=== PATIENT | female | born 1950 | race Caucasian/White ===

== ENCOUNTER → 2019-02-05 12:16 | Outpatient (CLI) | payer MEDICARE, OTHER, SELFPAY ==
--- NOTE | 2019-02-05 12:19 | DI.RAD.S_ITS ---
PROCEDURE: XR KNEE RT 3V INDICATIONS: knee pain from fall TECHNIQUE: 3 views of the knee were acquired. COMPARISON: None. FINDINGS: Bones: No fractures or dislocations. No suspicious bony lesions. Soft tissues: No joint effusion. No suspicious soft tissue calcifications. IMPRESSION: Excellent appearance, no trauma found. No effusion seen. Dictated by: James Jason M.D. on 02/05/2019 at 12:52 Approved by: James Jason M.D. on 02/05/2019 at 12:53
== END ==
PROVIDERS: PCP Family Medicine; Visit Provider Nurse Practitioner Family
DX: M25.561 Pain in right knee (principal)
CPT/HCPCS: 73562

== ENCOUNTER → 2019-03-26 13:45 | Outpatient (CLI) | payer MEDICARE, OTHER, SELFPAY ==
--- NOTE | 2019-03-26 | DI.MG.S_ITS ---
UNILATERAL LEFT DIGITAL SCREENING MAMMOGRAM 3D/2D WITH CAD POST MASTECTOMY WITH AUGMENTATION: 03/26/2019 CLINICAL: Routine screening. Personal history of breast cancer. Comparison is made to exams dated: 05/31/2015 mammogram, 02/04/2014 mammogram, 02/02/2013 mammogram, and 01/28/2012 mammogram - [facility]. The tissue of left breast is heterogeneously dense. This may lower the sensitivity of mammography. Current study was also evaluated with a Computer Aided Detection (CAD) system. Left breast implant is stable. No significant masses, calcifications, or other findings are seen in the breast. There has been no significant interval change. IMPRESSION: NEGATIVE There is no mammographic evidence of malignancy. A 1 year screening mammogram is recommended. This exam was interpreted at Station ID: [id number]. NOTE: For mammograms, a report in lay terms will be sent to the patient. Approximately 15% of breast malignancies will not be visualized mammographically. In the management of a palpable breast mass, a negative mammogram must not discourage biopsy of a clinically suspicious lesion. Electronically Signed By: Bassam ahumada/andreea:03/26/2019 18:43:35 letter sent: Normal Exam ACR BI-RADS Category 1: Negative [id number]
== END ==
PROVIDERS: Visit Provider Family Medicine
DX: Z12.31 Encounter for screening mammogram for malignant neoplasm of breast (principal); Z85.3 Personal history of malignant neoplasm of breast
CPT/HCPCS: 77063; 77067

== ENCOUNTER 2019-05-31 11:19 | Emergency (ER) | payer MEDICARE, OTHER, SELFPAY ==
[2019-05-31 11:27] VITALS: BP 166/89; PULSE 66; RESP 16; O2SAT 100
--- NOTE | 2019-05-31 11:27 | DI.RAD.S_ITS ---
PROCEDURE: XR RIBS LT MIN 3V W CXR1V INDICATIONS: injury TECHNIQUE: 2 views of the left ribs were acquired, along with a single view chest. COMPARISON: None. FINDINGS: Surgical changes and devices: Bilateral breast implants are noted. Axillary postoperative changes are present. There also appear to be clips within the right upper quadrant suggesting prior cholecystectomy. Bones and chest wall: Minimally displaced posterior left 9th rib fracture is evident. No additional rib fractures are identified. No suspicious bony lesions. Overlying soft tissues appear unremarkable. Lungs and pleura: No pleural effusions or pneumothorax. Lungs appear clear. Mediastinum: Mediastinal contours appear normal. Heart size is normal. IMPRESSION: Minimally displaced posterior left 9th rib fracture. No definite pneumothorax. Dictated by: Noel Blackmon M.D. on 05/31/2019 at 10:56 Approved by: Noel Blackmon M.D. on 05/31/2019 at 10:59
--- NOTE | 2019-05-31 11:54 | ED_ITS ---
HPI - Back Pain/Injury <Radha Ha, BUSINESS [employer] - Last Filed: 05/31/19 16:14> General Chief Complaint: Back Pain/Injury Stated Complaint: FELL AND HIT SOMETHING,CRACKED SOME RIBS Time Seen by Provider: 05/31/19 11:31 Source: patient and family Mode of arrival: Ambulatory Limitations: no limitations History of Present Illness HPI Narrative: The patient is a 68-year-old female who presents with her for chief complaint of left-sided rib pain. 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 Her states that she has an abrasion at that site, does not know when her last tetanus was. She denies hitting her head neck or any other pain other than the left-sided rib pain. She has not taken anything for pain s lacho this happened. It occurred just prior to arrival. She complains of severe pain worse with deep breath. She denies any previous injuries to her ribs, does have a remote history of breast cancer, remote history of spinal surgery. She does have a diagnosis of trigeminal neuralgia and she states that this pain is not as bad as her trigeminal neuralgia pain. Related Data Home Medications Medication Instructions Recorded Confirmed ASPIRIN (#ASPIRIN) 81 mg PO Q DAY #0 03/19/11 02/05/19 carbamazepine 200 mg PO BID #0 03/19/11 02/05/19 ASCORBIC ACID (VITAMIN C 1,000 mg PO Q DAY #0 11/22/11 02/05/19 (CHEWABLE)) CA PANTOTHENATE/FOLIC ACID/VIT 1 tab PO Q DAY #0 11/22/11 02/05/19 (MULTIVITAMIN) Pseudoephedrine Hydrochlorid 60 mg PO PRN #0 11/22/11 02/05/19 (#SUDAFED) VITAMIN D (Vitamin D3) 1,000 unit PO QDAY #0 02/04/12 02/05/19 [DHEA] 25 mg PO #0 02/19/16 02/05/19 docusate sodium 100 mg PO #0 02/19/16 02/05/19 ginkgo biloba 120 mg PO #0 02/19/16 02/05/19 lysine HCl 500 mg PO #0 02/19/16 02/05/19 melatonin #0 02/19/16 02/05/19 mometasone 1 julien TOPICAL #0 02/19/16 02/05/19 omega 8-gaq-fjw-fish oil [Fish Oil] 1,000 mg PO #0 02/19/16 02/05/19 Previous Rx's Medication Instructions Recorded estradiol 10 mcg vaginal tablet See Rx Instructions .ROUTE 01/04/19 .COMPLEX #36 tablet hydrocodone-acetaminophen [[place]] 1 tab PO Q4-6H PRN #10 tab 05/31/19 ondansetron 4 mg PO Q6H PRN #20 tab 05/31/19 Allergies Allergy/AdvReac Type Severity Reaction Status Date / Time neomycin Allergy Unknown Itches and Verified 05/31/19 11:27 hurts, little blisters morphine AdvReac Unknown SEVERE Verified 05/31/19 11:27 NAUSEA/VOMITING Review of Systems <MARISOL Baez - Last Filed: 05/31/19 16:14> Review of Systems Narrative: GENERAL: Denies chills, fatigue, malaise, fever, sweats. HEENT: Denies sinus pain, ear pain, sore throat, difficulty swallowing, dizziness. RESPIRATORY: See HPI CARDIOVASCULAR: Denies chest pain, palpitations, orthopnea, edema, GASTROINTESTINAL: Denies nausea, vomiting, abdominal pain, diarrhea, constipation, melena. : Denies dysuria, frequency, incontinence, hematuria, urinary retention. MUSCULOSKELETAL: denies weakness, joint pain, or bony pain SKIN: See HPI NEUROLOGIC: Denies weakness, headache, numbness, change in speech, confusion, seizures, incoordination. PSYCHIATRIC: No concerning psychosocial issues. 12 point review of systems is negative except for those stated above Patient History <MARISOL Baez - Last Filed: 05/31/19 16:14> Surgical History History of total mastectomy Status post laparoscopic cholecystectomy Status post myringotomy with insertion of tube Status post tubal ligation Status post vaginal hysterectomy Social History Smoking Status: Never smoker Smoking Status: Never smoker Exam <MARISOL Baez - Last Filed: 05/31/19 16:14> Narrative Exam Narrative: GENERAL: Thin female, appears very uncomfortable HEAD: Atraumatic. Normocephalic. No temporal or scalp tenderness. EYES: Pupils equal round and reactive. Extraocular motions intact. No scleral icterus. No injection or drainage. ENT: Nose without bleeding, purulent drainage or septal hematoma. Throat without erythema, tonsillar hypertrophy or exudate. Uvula midline. Airway patent. NECK: Trachea midline. No JVD or lymphadenopathy. Supple, nontender, no meningeal signs. CARDIOVASCULAR: Regular rate and rhythm without murmurs, gallops, or rubs. RESPIRATORY: Clear to auscultation. Breath sounds equal bilaterally. No wheezes, rales, or rhonchi. Pain to palpation left lower chest wall. Pain to anterior posterior chest wall compression as well as lateral chest wall compression GASTROINTESTINAL: Abdomen soft, diffusely tender, nondistended. No hepato- splenomegaly, or palpable masses. Pain to palpation left upper quadrant. EXTREMITIES: No clubbing, cyanosis, or edema. No joint tenderness, effusion, or edema noted. BACK: Nontender without deformity or crepitance. No flank tenderness. No pain to palpation of CT or L-spine. NEURO: AOx3. SKIN: Abrasion noted left lateral lower chest wall Initial Vital Signs Initial Vital Signs: Vital Signs Pulse Rate 66 05/31/19 11:27 Respiratory Rate 16 05/31/19 11:27 Blood Pressure 166/89 H 05/31/19 11:27 Pulse Oximetry 100 05/31/19 11:27 <Madalyn Snow MD - Last Filed: 06/01/19 07:05> Initial Vital Signs Initial Vital Signs: Vital Signs Pulse Rate 66 05/31/19 11:27 Respiratory Rate 16 05/31/19 11:27 Blood Pressure 166/89 H 05/31/19 11:27 Pulse Oximetry 100 05/31/19 11:27 Scores <MARISOL Baez - Last Filed: 05/31/19 16:14> GCS Stanford coma scale eye opening: Spontaneous Ángel coma scale verbal response: Orientated Stanford coma scale motor response: Obey commands Stanford coma scale total score: 15 Course <MARISOL Baez - Last Filed: 05/31/19 16:14> Orders Ordered: Discontinued Medications Hydrocodone Bitart/Acetaminophen ([place] 5/325) 2 tab PO NOW ONE Stop: 05/31/19 14:52 Last Admin: 05/31/19 14:57 Dose: 2 tab Documented by: OTTO Diphtheria/Tetanus/Acell Pertussis (Adacel) 0.5 ml IM .ONCE ONE Stop: 05/31/19 11:54 Last Admin: 05/31/19 12:16 Dose: 0.5 ml Documented by: YONI Hydromorphone HCl (Dilaudid) 0.5 mg IV NOW ONE Stop: 05/31/19 13:10 Last Admin: 05/31/19 13:14 Dose: 0.5 mg Documented by: OTTO Lidocaine (Lidoderm) 1 each TOP NOW ONE Stop: 05/31/19 11:54 Last Admin: 05/31/19 12:16 Dose: 1 each Documented by: YONI Ondansetron HCl (Zofran) 4 mg IV NOW ONE Stop: 05/31/19 13:10 Last Admin: 05/31/19 13:14 Dose: 4 mg Documented by: OTTO Reevaluation(s) Reevaluation #1: Discussed x-ray results with patient and . Given that she is tender to left upper quadrant palpation, does have displaced 9th rib fracture, she is at higher risk of a splenic injury. Will do lab work and CT s can help rule out acute splenic injury related to rib fracture. Patient and state understanding, have no questions or concerns, okay with plan of care. Time: 12:36 Vital Signs Vital signs: Vital Signs - 8 hr 05/31/19 11:27 05/31/19 13:29 05/31/19 15:56 Pulse Rate 66 61 70 Respiratory Rate 16 20 18 Blood Pressure 166/89 H 160/70 H Blood Pressure [Right Arm] 173/81 H Pulse Oximetry 100 100 98 <Madalyn Snow MD - Last Filed: 06/01/19 07:05> Orders Ordered: Discontinued Medications Hydrocodone Bitart/Acetaminophen ([place] 5/325) 2 tab PO NOW ONE Stop: 05/31/19 14:52 Last Admin: 05/31/19 14:57 Dose: 2 tab Documented by: OTTO Diphtheria/Tetanus/Acell Pertussis (Adacel) 0.5 ml IM .ONCE ONE Stop: 05/31/19 11:54 Last Admin: 05/31/19 12:16 Dose: 0.5 ml Documented by: YONI Hydromorphone HCl (Dilaudid) 0.5 mg IV NOW ONE Stop: 05/31/19 13:10 Last Admin: 05/31/19 13:14 Dose: 0.5 mg Documented by: OTTO Lidocaine (Lidoderm) 1 each TOP NOW ONE Stop: 05/31/19 11:54 Last Admin: 05/31/19 12:16 Dose: 1 each Documented by: YONI Ondansetron HCl (Zofran) 4 mg IV NOW ONE Stop: 05/31/19 13:10 Last Admin: 05/31/19 13:14 Dose: 4 mg Documented by: OTTO Vital Signs Vital signs: Vital Signs - 8 hr 05/31/19 11:27 05/31/19 13:29 05/31/19 15:56 Pulse Rate 66 61 70 Respiratory Rate 16 20 18 Blood Pressure 166/89 H 160/70 H Blood Pressure [Right Arm] 173/81 H Pulse Oximetry 100 100 98 MDM - Back Pain/Injury <LIZ Baez-BC - Last Filed: 05/31/19 16:14> Lab Data Result diagrams: 05/31/19 12:35 05/31/19 12:35 Labs: Lab Results 05/31/19 05/31/19 Range/Units 12:35 12:35 WBC 3.9 L (4.5-11.0) X10^3/uL RBC 3.91 L (4.0-5.2) X10^6/uL Hgb 13.1 (12.0-16.0) g/dL Hct 38.7 (36-46) % MCV 99.0 (80-100) fL MCH 33.6 (26-34) PG MCHC 33.9 (30-36) % RDW 12.2 (11.6-14.8) % Plt Count 214 (150-400) X10^3/uL Neut % (Auto) 52.4 (50-75) % Lymph % (Auto) 34.2 (25-40) % [place] % (Auto) 11.2 (3-14) % Eos % (Auto) 1.7 L (2-4) % Baso % (Auto) 0.5 (0-2) % Neut # (Auto) 2100 (4812-4734) /uL Lymph # (Auto) 1300 (7346-8608) /uL [place] # (Auto) 400 (0-900) /uL Eos # (Auto) 100 (0-450) /uL Baso # (Auto) 0 (0-100) /uL Sodium 132 L (137-145) mmol/L Potassium 4.5 (3.4-5.1) mmol/L Chloride 99 (98-107) mmol/L Carbon Dioxide 28 (22-32) mmol/L BUN 18 H (7-17) mg/dL Creatinine 0.56 (0.52-1.04) mg/dL Estimated GFR > 60.0 (>60) mL/min BUN/Creatinine Ratio 32.1 H (6-22) Glucose 95 (80-110) mg/dL Calcium 9.3 (8.4-10.2) mg/dL Total Bilirubin 0.3 (0.2-1.3) mg/dL AST 56 H (14-36) IU/L ALT 76 H (<35) IU/L Alkaline Phosphatase 88 (38-126) U/L Total Protein 7.4 (6.3-8.2) g/dL Albumin 4.3 (3.5-5.0) g/dL Globulin 3.1 (1.7-4.1) g/dL Albumin/Globulin Ratio 1.4 (1.0-2.8) Imaging Data rib xray : Radiologist's Impression: [address] [place], [place] [id number] XRay Report Signed Patient: Nikole Flaherty LMR#: [id number] : 9Acct:[id number] Age/Sex: 68 / FDate of Service: 05/31/19 Loc: ED Accession Number: [id number] Procedure: XR ribs LT min 3V w CXR1V Ordering Provider: Madalyn Snow MD PROCEDURE: XR RIBS LT MIN 3V W CXR1V INDICATIONS: injury TECHNIQUE: 2 views of the left ribs were acquired, along with a single view chest. COMPARISON: None. FINDINGS: Surgical changes and devices: Bilateral breast implants are noted. Axillary postoperative changes are present. There also appear to be clips within the right upper quadrant suggesting prior cholecystectomy. Bones and chest wall: Minimally displaced posterior left 9th rib fracture is evident. No additional rib fractures are identified. No suspicious bony lesions. Overlying soft tissues appear unremarkable. Lungs and pleura: No pleural effusions or pneumothorax. Lungs appear clear. Mediastinum: Mediastinal contours appear normal. Heart size is normal. IMPRESSION: Minimally displaced posterior left 9th rib fracture. No definite pneumothorax. Dictated by: Noel Blackmon M.D. on 05/31/2019 at 10:56 Approved by: Noel Blackmon M.D. on 05/31/2019 at 10:59 CT scan - abdomen/pelvis: Radiologist's Impression: [address] [address] [address] Scan Report Signed Patient: Nikole Flaherty LMR#: [id number] : 1951Acct:[id number] Age/Sex: 68 / FDate of Service: 05/31/19 Loc: ED Accession Number: [id number] Procedure: CT chest abd pel w con Ordering Provider: Radha Ha [employer]- PROCEDURE: CT CHEST ABD PEL W CON INDICATIONS: glf, rib fx, abd pain TECHNIQUE: After the administration of intravenous contrast, 5 mm thick sections acquired from the lung apices to the symphysis. 5 mm coronal and sagittal reformats were performed, with additional 7 mm MIP reformats through the lungs. For radiation dose reduction, the following was used: automated exposure control, adjustment of mA and/or kV according to patient size. COMPARISON: [facility], CR, XR RIBS LT MIN 3V W CXR1V, 05/31/2019, 11:24. FINDINGS: Image quality: Excellent. CHEST: Lungs and pleura: No acute airspace opacities. No pleural effusions or pneumothorax. Central and peripheral airways appear patent and normal in caliber. Mediastinum: Heart size is normal. No pericardial effusion. No mediastinal or hilar adenopathy by size criteria. Thoracic aorta and central pulmonary arteries are normal in size. Esophagus is normal in caliber. No hiatal hernia. Chest wall: No axillary or supraclavicular adenopathy by size criteria. Thyroid gland appears normal weren't well seen. The bilateral breast implants show no evidence of rupture. Left posterolateral minimally displaced ninth and 10th rib fractures. ABDOMEN: Solid organs: Liver is normal in size and enhancement. Gallbladder has been previously resected. Biliary system is non dilated. Pancreas enhances normally. Spleen is normal in size and enhancement. No adrenal nodules. Kidneys demonstrate normal size and enhancement, without hydronephrosis. Peritoneum and bowel: Bowel loops demonstrate normal wall thickness and caliber. No free fluid or air. There is generalized colonic obstipation through the abdomen and pelvis. Nodes and vessels: No retroperitoneal or mesenteric adenopathy by size criteria. Aorta and inferior vena cava are normal in size. Miscellaneous: No ventral hernias. PELVIS: Genitourinary: Bladder wall thickness is normal. Miscellaneous: No inguinal hernias or adenopathy. Bones: No suspicious bony lesions. No vertebral body compression fractures. IMPRESSION: 1. Left posterolateral ninth and 10th minimally displaced rib fractures without subcutaneous emphysema or pneumothorax associated. No hemothorax is present. 2. Generalized colonic obstipation through the abdomen and pelvis, etiology uncertain. No small bowel obstruction is suspected. 3. Through the examination no visceral trauma is found. Dictated by: James Jason M.D. on 05/31/2019 at 14:32 Approved by: James Jason M.D. on 05/31/2019 at 14:37 MDM Narrative Medical decision making narrative: The patient is a 68-year-old female who presents with a chief complaint of left-sided rib pain after a fall onto a piece of cat equipment. X-ray is concerning for at 9th left rib fracture, given the patient's abdominal tenderness we did obtain a CT scan to help rule out any sp lenic or visceral organ damage. CT showed left sided 9th and 10th minute displaced rib fractures. The patient was given pain and nausea control throughout her stay in the emergency department. She denies hitting her head any neck or back pain stated was an isolated rib injury. She was evaluated by respiratory therapist, given instructions and splint coughing as well as a incentive spirometer. We discussed at length deep breathing to help prevent development of pneumonia. We discussed not combining [place] with any sedating agents, that can be constipating, and sent a prescription of [place] and Zofran for the patient. Discussed at length the importance of following up with primary care provider in the next few days as well as coming back to the emergency department for any acute concerns. Patient and have no questions or concerns upon discharge and state understanding of return precautions as well as follow-up care. <Madalyn Snow MD - Last Filed: 06/01/19 07:05> Lab Data Labs: Lab Results 05/31/19 05/31/19 Range/Units 12:35 12:35 WBC 3.9 L (4.5-11.0) X10^3/uL RBC 3.91 L (4.0-5.2) X10^6/uL Hgb 13.1 (12.0-16.0) g/dL Hct 38.7 (36-46) % MCV 99.0 (80-100) fL MCH 33.6 (26-34) PG MCHC 33.9 (30-36) % RDW 12.2 (11.6-14.8) % Plt Count 214 (150-400) X10^3/uL Neut % (Auto) 52.4 (50-75) % Lymph % (Auto) 34.2 (25-40) % [place] % (Auto) 11.2 (3-14) % Eos % (Auto) 1.7 L (2-4) % Baso % (Auto) 0.5 (0-2) % Neut # (Auto) 2100 (1816-6079) /uL Lymph # (Auto) 1300 (6476-2252) /uL [place] # (Auto) 400 (0-900) /uL Eos # (Auto) 100 (0-450) /uL Baso # (Auto) 0 (0-100) /uL Sodium 132 L (137-145) mmol/L Potassium 4.5 (3.4-5.1) mmol/L Chloride 99 (98-107) mmol/L Carbon Dioxide 28 (22-32) mmol/L BUN 18 H (7-17) mg/dL Creatinine 0.56 (0.52-1.04) mg/dL Estimated GFR > 60.0 (>60) mL/min BUN/Creatinine Ratio 32.1 H (6-22) Glucose 95 (80-110) mg/dL Calcium 9.3 (8.4-10.2) mg/dL Total Bilirubin 0.3 (0.2-1.3) mg/dL AST 56 H (14-36) IU/L ALT 76 H (<35) IU/L Alkaline Phosphatase 88 (38-126) U/L Total Protein 7.4 (6.3-8.2) g/dL Albumin 4.3 (3.5-5.0) g/dL Globulin 3.1 (1.7-4.1) g/dL Albumin/Globulin Ratio 1.4 (1.0-2.8) Discharge Plan Departure Patient Disposition: Home Clinical Impression: Abrasion, Fall from ground level Closed rib fracture Qualifiers: Encounter type: initial encounter Rib fracture type: multiple ribs Laterality: left Qualified Code(s): S22.42XA - Multiple fractures of ribs, left side, initial encounter for closed fracture Discharge Date/Time: 05/31/19 15:57 Instructions: How to Use an Incentive Spirometer, Exercises to Help Prevent Falls, DI for Rib Fracture, DI for Abrasion Activity Restrictions/Additional Instructions: Thank you for trusting us with your care today. Unfortunately you broke 2 ribs with your fall However your CT scan shows damage to underlying organs I have sent prescriptions of pain medicine and nausea medicine to [facility] I have given you a prescription of a narcotic for pain. Be aware that this can be constipating and sedating. I encouraged taking with a stool softener, pushing fluids and fiber. Do not take and drive, operate heavy machinery, etc. Do not combine it with any other sedating substances such as alcohol. The combination of narcotics and alcohol and/or other sedatives can be lethal. Please be aware that we do not provide refills of controlled substances in the emergency department. Please follow up with your primary care provider. Please come back to the emergency department for any acute concerns. Please use the incentive spirometer to help prevent pneumonia. Please follow-up with primary care provider in the next few days. We also updated your tetanus vaccination during your emergency department stay Prescriptions: New ondansetron 4 mg tablet,disintegrating 4 mg PO Q6H PRN (Reason: nausea and vomiting) Qty: 20 RF: 0 hydrocodone-acetaminophen [[place]] 5-325 mg tablet 1 tab PO Q4-6H PRN (Reason: pain) Qty: 10 RF: 0 No Action carbamazepine 200 MG tablet 200 mg PO BID Qty: 0 RF: 0 ASPIRIN (#ASPIRIN) 81 mg PO Q DAY Qty: 0 RF: 0 Pseudoephedrine Hydrochlorid (#SUDAFED) 60 mg PO PRN Qty: 0 RF: 0 ASCORBIC ACID (VITAMIN C (CHEWABLE)) 1,000 mg PO Q DAY Qty: 0 RF: 0 CA PANTOTHENATE/FOLIC ACID/VIT (MULTIVITAMIN) 1 tab PO Q DAY Qty: 0 RF: 0 VITAMIN D (Vitamin D3) 1,000 unit PO QDAY Qty: 0 RF: 0 docusate sodium 100 MG capsule 100 mg PO Qty: 0 RF: 0 [DHEA] 25 mg PO Qty: 0 RF: 0 ginkgo biloba 120 MG tablet 120 mg PO Qty: 0 RF: 0 melatonin 5 MG tablet Qty: 0 RF: 0 lysine HCl 500 MG tablet 500 mg PO Qty: 0 RF: 0 omega 2-bxa-sxq-fish oil [Fish Oil] 1,000 MG capsule 1,000 mg PO Qty: 0 RF: 0 mometasone 0.1 % solution 1 julien Topical Qty: 0 RF: 0 estradiol [Yuvafem] 10 mcg tablet See Rx Instructions .ROUTE .COMPLEX Qty: 36 RF: 4 Referrals: Pili Larson MD [Non-Staff] -
[2019-05-31] MEDS: TET,DIPH,PERTUSS(ACELL),VAC/PF 0.5 ML SYRINGE IM (12:16)
[2019-05-31] MEDS: LIDOCAINE PATCH 1 EACH ADH..PATCH TOP (12:16)
[2019-05-31 12:48] LABS: Add Manual Diff / Slide Review NO; Basophils Absolute Auto 0 /uL (0-100); Basophils Percent Auto 0.5 % (0-2); Eosinophils Absolute Auto 100 /uL (0-450); Eosinophils Percent Auto 1.7 % (2-4); Hematocrit 38.7 % (36-46); Hemoglobin 13.1 g/dL (12.0-16.0); Lymphocytes Absolute Auto 1300 /uL (1100-4500); Lymphocytes Percent Auto 34.2 % (25-40); Mean Corpuscular HGB Conc 33.9 % (30-36); Mean Corpuscular Hemoglobin 33.6 PG (26-34); Monocytes Absolute Auto 400 /uL (0-900); Monocytes Percent Auto 11.2 % (3-14); Neutrophils Absolute Auto 2100 /uL (1500-7000); Neutrophils Percent Auto 52.4 % (50-75); Platelet Count 214 X10^3/uL (150-400); Red Blood Cell Count 3.91 X10^6/uL (4.0-5.2); Red Cell Distribution Width 12.2 % (11.6-14.8); White Blood Cell Count 3.9 X10^3/uL (4.5-11.0)
[2019-05-31 13:02] LABS: Alanine Aminotransferase 76 IU/L (<35); Albumin 4.3 g/dL (3.5-5.0); Albumin Globulin Ratio 1.4 (1.0-2.8); Alkaline Phosphatase 88 U/L (38-126); Aspartate Aminotransferase 56 IU/L (14-36); BUN Creatinine Ratio 32.1 (6-22); Bilirubin Total 0.3 mg/dL (0.2-1.3); Blood Urea Nitrogen 18 mg/dL (7-17); Calcium 9.3 mg/dL (8.4-10.2); Carbon Dioxide 28 mmol/L (22-32); Chloride 99 mmol/L (98-107); Estimated Glomerular Filt Rate > 60.0 mL/min (>60); Globulin 3.1 g/dL (1.7-4.1); Glucose 95 mg/dL (80-110); HEMOLYSIS < 15 (0-50); Potassium 4.5 mmol/L (3.4-5.1); Sodium 132 mmol/L (137-145); Total Protein 7.4 g/dL (6.3-8.2)
[2019-05-31] MEDS: ONDANSETRON 4 MG/2 ML INJ IV (13:14)
[2019-05-31] MEDS: HYDROMORPHONE 0.5 MG INJ IV (13:14)
[2019-05-31 13:29] VITALS: BP 173/81; PULSE 61; RESP 20; O2SAT 100
--- NOTE | 2019-05-31 13:59 | DI.CT.S_ITS ---
PROCEDURE: CT CHEST ABD PEL W CON INDICATIONS: glf, rib fx, abd pain TECHNIQUE: After the administration of intravenous contrast, 5 mm thick sections acquired from the lung apices to the symphysis. 5 mm coronal and sagittal reformats were performed, with additional 7 mm MIP reformats through the lungs. For radiation dose reduction, the following was used: automated exposure control, adjustment of mA and/or kV according to patient size. COMPARISON: [facility], CR, XR RIBS LT MIN 3V W CXR1V, 05/31/2019, 11:24. FINDINGS: Image quality: Excellent. CHEST: Lungs and pleura: No acute airspace opacities. No pleural effusions or pneumothorax. Central and peripheral airways appear patent and normal in caliber. Mediastinum: Heart size is normal. No pericardial effusion. No mediastinal or hilar adenopathy by size criteria. Thoracic aorta and central pulmonary arteries are normal in size. Esophagus is normal in caliber. No hiatal hernia. Chest wall: No axillary or supraclavicular adenopathy by size criteria. Thyroid gland appears normal weren't well seen. The bilateral breast implants show no evidence of rupture. Left posterolateral minimally displaced ninth and 10th rib fractures. ABDOMEN: Solid organs: Liver is normal in size and enhancement. Gallbladder has been previously resected. Biliary system is non dilated. Pancreas enhances normally. Spleen is normal in size and enhancement. No adrenal nodules. Kidneys demonstrate normal size and enhancement, without hydronephrosis. Peritoneum and bowel: Bowel loops demonstrate normal wall thickness and caliber. No free fluid or air. There is generalized colonic obstipation through the abdomen and pelvis. Nodes and vessels: No retroperitoneal or mesenteric adenopathy by size criteria. Aorta and inferior vena cava are normal in size. Miscellaneous: No ventral hernias. PELVIS: Genitourinary: Bladder wall thickness is normal. Miscellaneous: No inguinal hernias or adenopathy. Bones: No suspicious bony lesions. No vertebral body compression fractures. IMPRESSION: 1. Left posterolateral ninth and 10th minimally displaced rib fractures without subcutaneous emphysema or pneumothorax associated. No hemothorax is present. 2. Generalized colonic obstipation through the abdomen and pelvis, etiology uncertain. No small bowel obstruction is suspected. 3. Through the examination no visceral trauma is found. Dictated by: James Jason M.D. on 05/31/2019 at 14:32 Approved by: James Jason M.D. on 05/31/2019 at 14:37
[2019-05-31] MEDS: HYDROCODONE/ACET 5/325 TABLET 2 TAB PO (14:57)
[2019-05-31 15:56] VITALS: BP 160/70; PULSE 70; RESP 18; O2SAT 98
== END 2019-05-31 15:57 | disposition home or self-care (01) ==
PROVIDERS: Emergency Provider Nurse Practitioner Family
DX: S22.42XA Multiple fractures of ribs, left side, initial encounter for closed fracture (principal); S30.811A Abrasion of abdominal wall, initial encounter; W18.30XA Fall on same level, unspecified, initial encounter; Z23 Encounter for immunization
CPT/HCPCS: 36415; 71101; 71260; 74177; 80053; 85025; 90471; 96374; 96375; 99284; 99285; 90715; J1170; J2405; Q9967

== ENCOUNTER → 2019-09-21 16:59 | Outpatient (CLI) | payer MEDICARE, OTHER, SELFPAY ==
--- NOTE | 2019-09-21 | DI.MRI.S_ITS ---
PROCEDURE: MR LUMBAR SPINE WO CON INDICATIONS: Low back pain. Bilateral lower leg numbness TECHNIQUE: Noncontrast sagittal T1 spin echo and T2 fast echo, sagittal STIR, axial T1 and T2 fast spin echo through the lumbar spine. In cases with scoliosis, additional coronal T2 fast spin echo may be performed. COMPARISON: [facility], MR, L-SPINE WITHOUT CONTRAST, 04/26/2015, 19:34. FINDINGS: Image quality: Excellent. Alignment and Curvature: There is normal bony alignment. Bone Marrow: Marrow is of normal overall signal. No acute vertebral body compression fractures. Spinal Cord: Conus medullaris terminates at the T12-L1 level. Visualized cord demonstrates normal signal and size. Paraspinous Soft Tissues: No paravertebral masses. L1-L2: Loss of disc signal and height. Moderate, diffuse disc bulge. Mild to moderate narrowing of the central canal. Moderate bilateral neural foraminal narrowing. No neural compression. L2-L3: Loss of disc signal and height. Moderate, diffuse disc bulge. Mild bilateral facet hypertrophy. Mild ligamentum flavum hypertrophy. Moderate narrowing of the central canal. Moderate bilateral neural foraminal narrowing. No neural compression. L3-L4: Loss of disc signal and height. Mild to moderate diffuse disc bulge. Izhy-gw-rewhsnrm bilateral facet hypertrophy. Moderate narrowing of the central canal. Moderate bilateral neural foraminal narrowing. No neural compression. L4-L5: Loss of disc signal and height. Moderate, diffuse disc bulge. Moderate right and severe left facet hypertrophy. Moderate to severe narrowing of the central canal with crowding of the nerve roots of the cauda equina. Severe bilateral neural foraminal narrowing with compression of the exiting L4 nerve roots. L5-S1: Loss of disc signal. Mild, diffuse disc bulge. Moderate-sized central/right central disc protrusion. Disc protrusion abuts and displaces the traversing left S1 nerve root. Mild right and moderate left facet hypertrophy. Mild narrowing of the central canal. Moderate to severe bilateral neural foraminal narrowing with slight compression of the exiting bilateral L5 nerve roots. IMPRESSION: 1. Multilevel degenerate disc disease. 2. Multilevel facet arthropathy. 3. Moderate to severe L4-L5 central canal narrowing with crowding of the nerve roots of the cauda equina. 4. Severe bilateral L4-L5 neural foraminal narrowing with compression of the exiting bilateral L4 nerve roots. Moderate to severe bilateral L5-S1 neural foraminal narrowing with slight compression of the exiting bilateral L5 nerve roots. Dictated by: Christina Ocasio MD, PhD on 09/22/2019 at 13:48 Approved by: Christina Ocasio MD, PhD on 09/22/2019 at 13:57
== END ==
PROVIDERS: PCP Family Medicine; Referring Provider Orthopaedic Surgery Orthopaedic Surgery of the Spine; Visit Provider Orthopaedic Surgery Orthopaedic Surgery of the Spine
DX: M47.26 Other spondylosis with radiculopathy, lumbar region (principal); M47.27 Other spondylosis with radiculopathy, lumbosacral region; M54.5 Low back pain; M51.16 Intervertebral disc disorders with radiculopathy, lumbar region; M51.17 Intervertebral disc disorders with radiculopathy, lumbosacral region; M48.061 Spinal stenosis, lumbar region without neurogenic claudication; M48.07 Spinal stenosis, lumbosacral region; R20.0 Anesthesia of skin
CPT/HCPCS: 72148

== ENCOUNTER → 2020-03-30 10:49 | Outpatient (CLI) | payer MEDICARE, SELFPAY ==
[2020-03-30] MEDS: COVID-19 VACC #1, MRNA(MOD) 100 MCG/0.5 ML VIAL IM (10:55)
== END ==
PROVIDERS: PCP Family Medicine; Visit Provider Internal Medicine
DX: Z23 Encounter for immunization (principal)
CPT/HCPCS: 0011A; 91301

== ENCOUNTER → 2020-04-07 08:11 | Outpatient (CLI) | payer MEDICARE, SELFPAY ==
[2020-04-07 08:53] LABS: Alanine Aminotransferase 25 IU/L (<35); Albumin 3.9 g/dL (3.5-5.0); Albumin Globulin Ratio 1.4 (1.0-2.8); Alkaline Phosphatase 88 U/L (38-126); Aspartate Aminotransferase 41 IU/L (14-36); Bilirubin Total 0.2 mg/dL (0.2-1.3); Blood Urea Nitrogen 21 mg/dL (7-17); Calcium 9.1 mg/dL (8.4-10.2); Carbon Dioxide 30 mmol/L (22-32); Chloride 104 mmol/L (98-107); Cholesterol 224 mg/dL (140-199); Estimated Glomerular Filt Rate > 60.0 mL/min (>60); Globulin 2.7 g/dL (1.7-4.1); Glucose 96 mg/dL (80-110); HDL Cholesterol 102 mg/dL (40-60); HEMOLYSIS < 15 (0-50); LDL Cholesterol Calculated 112 mg/dL (<100); Potassium 4.3 mmol/L (3.4-5.1); Sodium 135 mmol/L (137-145); Total Protein 6.6 g/dL (6.3-8.2); Triglycerides 48 mg/dL (35-150)
[2020-04-07 09:12] LABS: Add Manual Diff / Slide Review NO; Basophils Absolute Auto 0 /uL (0-100); Basophils Percent Auto 0.7 % (0-2); Eosinophils Absolute Auto 100 /uL (0-450); Eosinophils Percent Auto 1.9 % (2-4); Hematocrit 31.6 % (36-46); Hemoglobin 10.2 g/dL (12.0-16.0); Lymphocytes Absolute Auto 1100 /uL (1100-4500); Lymphocytes Percent Auto 28.5 % (25-40); Mean Corpuscular HGB Conc 32.2 % (30-36); Mean Corpuscular Hemoglobin 27.7 PG (26-34); Monocytes Absolute Auto 400 /uL (0-900); Monocytes Percent Auto 10.8 % (3-14); Neutrophils Absolute Auto 2200 /uL (1500-7000); Neutrophils Percent Auto 58.1 % (50-75); Platelet Count 261 X10^3/uL (150-400); Red Blood Cell Count 3.67 X10^6/uL (4.0-5.2); Red Cell Distribution Width 16.2 % (11.6-14.8); White Blood Cell Count 3.7 X10^3/uL (4.5-11.0)
== END ==
PROVIDERS: PCP Family Medicine; Referring Provider Family Medicine; Visit Provider Family Medicine
DX: E78.5 Hyperlipidemia, unspecified (principal); I77.6 Arteritis, unspecified
CPT/HCPCS: 36415; 80053; 80061; 85025

== ENCOUNTER → 2020-04-27 11:09 | Outpatient (CLI) | payer MEDICARE, SELFPAY ==
[2020-04-27] MEDS: COVID-19 VACC #2, MRNA(MOD) 100 MCG/0.5 ML VIAL IM (11:12)
== END ==
PROVIDERS: PCP Family Medicine; Visit Provider Internal Medicine
DX: Z23 Encounter for immunization (principal)
CPT/HCPCS: 0012A; 91301

== ENCOUNTER → 2020-06-07 15:03 | Outpatient (CLI) | payer MEDICARE, SELFPAY ==
[2020-06-07 16:05] LABS: Add Manual Diff / Slide Review NO; Basophils Absolute Auto 0 /uL (0-100); Basophils Percent Auto 0.5 % (0-2); Eosinophils Absolute Auto 100 /uL (0-450); Eosinophils Percent Auto 1.8 % (2-4); Hematocrit 31.6 % (36-46); Hemoglobin 10.4 g/dL (12.0-16.0); Lymphocytes Absolute Auto 1700 /uL (1100-4500); Lymphocytes Percent Auto 32.5 % (25-40); Mean Corpuscular HGB Conc 32.8 % (30-36); Mean Corpuscular Volume 85.5 fL (80-100); Monocytes Absolute Auto 600 /uL (0-900); Monocytes Percent Auto 11.5 % (3-14); Neutrophils Absolute Auto 2800 /uL (1500-7000); Neutrophils Percent Auto 53.7 % (50-75); Platelet Count 229 X10^3/uL (150-400); Red Cell Distribution Width 15.3 % (11.6-14.8); White Blood Cell Count 5.2 X10^3/uL (4.5-11.0)
[2020-06-07 16:26] LABS: HEMOLYSIS < 15 (0-50); Iron 25 ug/dL (37-170)
[2020-06-07 16:28] LABS: Alanine Aminotransferase 126 IU/L (<35); Albumin 3.9 g/dL (3.5-5.0); Albumin Globulin Ratio 1.3 (1.0-2.8); Alkaline Phosphatase 137 U/L (38-126); Aspartate Aminotransferase 132 IU/L (14-36); Blood Urea Nitrogen 18 mg/dL (7-17); Calcium 8.9 mg/dL (8.4-10.2); Carbon Dioxide 27 mmol/L (22-32); Chloride 99 mmol/L (98-107); Estimated Glomerular Filt Rate > 60.0 mL/min (>60); Glucose 83 mg/dL (80-110); HEMOLYSIS < 15 (0-50); Potassium 4.1 mmol/L (3.4-5.1); Sodium 133 mmol/L (137-145); Total Protein 6.9 g/dL (6.3-8.2)
[2020-06-07 16:37] LABS: Percent Iron Saturation 7 % (15-50); Total Iron Binding Capacity 343 ug/dL (265-497); Transferrin 279 mg/dL (206-381)
[2020-06-07 16:48] LABS: Bilirubin Total < 0.1 mg/dL (0.2-1.3)
[2020-06-07 17:04] LABS: Ferritin 19 ng/mL (11-264)
[2020-06-07 17:35] LABS: Folate > 20.0 ng/mL (2.76-20.0); Vitamin B12 > 1000 pg/mL (239-931)
== END ==
PROVIDERS: PCP Family Medicine; Referring Provider Family Medicine; Visit Provider Family Medicine
DX: D64.9 Anemia, unspecified (principal)
CPT/HCPCS: 36415; 80053; 82607; 82728; 82746; 83540; 83550; 85025

== ENCOUNTER 2020-06-16 09:13 | Emergency (ER) | payer MEDICARE, OTHER, SELFPAY ==
[2020-06-16 09:38] VITALS: BP 154/69; PULSE 60; RESP 16; TEMP 36.9; O2SAT 100
--- NOTE | 2020-06-16 10:07 | ED_ITS ---
HPI - Abdominal Pain General Chief Complaint: Abdominal Pain Stated Complaint: discomfort/loss of appetite/right side pain Time Seen by Provider: 06/16/20 10:05 Source: patient Mode of arrival: Ambulatory Limitations: no limitations History of Present Illness HPI narrative: Patient is a 69-year-old female with history of hepatitis-B and cholecystectomy presenting with is right upper quadrant pain ongoing for the l ast 5 days. She says she feels nauseous she has decreased appetite pain radiates up to her right shoulder. She denies any chest pain or shortness of breath no fever or chills. sHe says when she had her gallbladder issue actually hurt much worse. She has not taken anything for pain and does not want anything for pain at this time. MD complaint: abdominal pain Pain Consistency: constant Location: RUQ Related Data Home Medications Medication Instructions Recorded Confirmed ASPIRIN (#ASPIRIN) 81 mg PO Q DAY #0 03/19/11 02/05/19 carbamazepine 200 mg PO BID #0 03/19/11 02/05/19 ASCORBIC ACID (VITAMIN C 1,000 mg PO Q DAY #0 11/22/11 02/05/19 (CHEWABLE)) CA PANTOTHENATE/FOLIC ACID/VIT 1 tab PO Q DAY #0 11/22/11 02/05/19 (MULTIVITAMIN) Pseudoephedrine Hydrochlorid 60 mg PO PRN #0 11/22/11 02/05/19 (#SUDAFED) VITAMIN D (Vitamin D3) 1,000 unit PO QDAY #0 02/04/12 02/05/19 [DHEA] 25 mg PO #0 02/19/16 02/05/19 docusate sodium 100 mg PO #0 02/19/16 02/05/19 ginkgo biloba 120 mg PO #0 02/19/16 02/05/19 lysine HCl 500 mg PO #0 02/19/16 02/05/19 melatonin #0 02/19/16 02/05/19 mometasone 1 julien TOPICAL #0 02/19/16 02/05/19 omega 1-ijx-ahf-fish oil [Fish Oil] 1,000 mg PO #0 02/19/16 02/05/19 Previous Rx's Medication Instructions Recorded hydrocodone-acetaminophen [[place]] 1 tab PO Q4-6H PRN #10 tab 03/30/20 ondansetron 4 mg PO Q6H PRN #20 tab 05/31/19 estradiol 10 mcg vaginal tablet See Rx Instructions .ROUTE 06/09/20 .COMPLEX #36 tablet ondansetron 4 mg PO Q8H PRN #10 tab 06/16/20 Allergies Allergy/AdvReac Type Severity Reaction Status Date / Time neomycin Allergy Unknown Itches and Verified 05/31/19 11:27 hurts, little blisters morphine AdvReac Unknown SEVERE Verified 05/31/19 11:27 NAUSEA/VOMITING Review of Systems Review of Systems ROS Unobtainable: All systems reviewed & are unremarkable except as noted in HPI and below Constitutional Constitutional: Denies chills, Denies fever(s), Denies lethargy and Denies weakness ENT Ears, Nose, Mouth, and Throat: Denies change in voice, Denies vertigo, Denies dizziness, Denies neck pain and Denies sore throat Cardiovascular Cardiovascular: Denies chest pain, Denies irregular heart rhythm, Denies lightheadedness, Denies palpitations, Denies dyspnea, Denies dyspnea on exertion and Denies orthopnea Respiratory Respiratory: Denies cough, Denies dyspnea, Denies dyspnea on exertion and Denies wheezing Gastrointestinal Gastrointestinal: Reports as per HPI, Reports abdominal pain and Reports nausea Musculoskeletal Musculoskeletal: Denies back pain, Denies myalgias and Denies neck pain Integumentary/Breasts Skin/Breast: Denies pruritus, Denies erythema, Denies rash and Denies wounds Neurologic Neurologic: Denies confusion, Denies vertigo, Denies dizziness and Denies weakness Psychiatric Psychiatric: Denies confusion Endocrine Endocrine: Denies palpitations Allergic/Immunologic Allergic/Immunologic: Denies wheezing Patient History Surgical History History of total mastectomy Status post laparoscopic cholecystectomy Status post myringotomy with insertion of tube Status post tubal ligation Status post vaginal hysterectomy Social History Smoking Status: Never smoker Smoking Status: Never smoker Exam Initial Vital Signs Initial Vital Signs: Vital Signs Temperature 98.5 F 06/16/20 09:38 Pulse Rate 60 06/16/20 09:38 Respiratory Rate 16 06/16/20 09:38 Blood Pressure 154/69 H 06/16/20 09:38 Pulse Oximetry 100 06/16/20 09:38 GENERAL: Well appearing 69-year-old female and in no acute distress. HEENT: Head atraumatic,EOMI, pupils reactive, face symmetric, moist mucous membranes CARDIOVASCULAR: Regular rate and rhythm without murmurs, rubs or gallops. RESPIRATORY: Breath sounds equal bilaterally, no wheezes rales or rhonchi. ABDOMEN: Soft, tender right upper quadrant no guarding or rebound EXTREMITIES: Normal range of motion, no clubbing or edema. Neurovascularly intact NEUROLOGICAL: Alert and oriented x4.Normal gait and speech. SKIN: Warm, dry, no laceration, no petechiae, no rashes or lesions. Course Orders Ordered: ED Orders 06/16/20 10:00 Complete Blood Count AUTO DIFF Stat Comprehensive Metabolic Panel Stat Lipase Stat Partial Thromboplastin Time Stat Prothrombin Time INR Stat Troponin & CK Cardiac Panel Stat 06/16/20 10:04 EKG-12 Lead Stat 06/16/20 10:05 US abdomen limited Stat 06/16/20 10:50 CT chest abd pel w con Stat Vital Signs Vital signs: Vital Signs - 8 hr 06/16/20 09:38 06/16/20 13:00 Temperature 98.5 F Pulse Rate 60 65 Respiratory Rate 16 14 Blood Pressure 154/69 H 154/76 H Pulse Oximetry 100 99 MDM - Abdominal Pain Lab Data Attestation: I reviewed the patient's lab results. Result diagrams: 06/16/20 10:00 06/16/20 10:00 Labs: Lab Results 06/16/20 06/16/20 06/16/20 Range/Units 10:00 10:00 10:00 WBC 4.2 L (4.5-11.0) X10^3/uL RBC 3.56 L (4.0-5.2) X10^6/uL Hgb 10.1 L (12.0-16.0) g/dL Hct 30.9 L (36-46) % MCV 86.9 (80-100) fL MCH 28.3 (26-34) PG MCHC 32.6 (30-36) % RDW 16.2 H (11.6-14.8) % Plt Count 197 (150-400) X10^3/uL Neut % (Auto) 64.1 (50-75) % Lymph % (Auto) 22.8 L (25-40) % [place] % (Auto) 11.0 (3-14) % Eos % (Auto) 1.7 L (2-4) % Baso % (Auto) 0.4 (0-2) % Neut # (Auto) 2700 (5394-7034) /uL Lymph # (Auto) 1000 L (7252-9454) /uL [place] # (Auto) 500 (0-900) /uL Eos # (Auto) 100 (0-450) /uL Baso # (Auto) 0 (0-100) /uL PT 12.5 (10.1-12.7) SECONDS INR 1.1 (0.9-1.3) APTT 49 H (26.4-36.2) SECONDS Sodium 133 L (137-145) mmol/L Potassium 4.0 (3.4-5.1) mmol/L Chloride 102 (98-107) mmol/L Carbon Dioxide 25 (22-32) mmol/L BUN 17 (7-17) mg/dL Creatinine 0.58 (0.52-1.04) mg/dL Estimated GFR > 60.0 (>60) mL/min BUN/Creatinine Ratio 29.3 H (6-22) Glucose 89 (80-110) mg/dL Calcium 8.9 (8.4-10.2) mg/dL Total Bilirubin 0.3 (0.2-1.3) mg/dL AST 173 H (14-36) IU/L ALT 176 H (<35) IU/L Alkaline Phosphatase 160 H (38-126) U/L Total Creatine Kinase 116 (30-135) U/L CK-MB (CK-2) 1.68 (<2.37) ng/mL CK-MB (CK-2) Rel Index 1.4 L (1.5-5.0) % Troponin I < 0.012 (0.01-0.034) ng/mL Total Protein 6.6 (6.3-8.2) g/dL Albumin 3.8 (3.5-5.0) g/dL Globulin 2.8 (1.7-4.1) g/dL Albumin/Globulin Ratio 1.4 (1.0-2.8) Lipase 281 (23-300) U/L Imaging Data US - abdomen: Radiologist's Impression: PROCEDURE: US ABDOMEN LIMITED INDICATIONS: RIGHT UPPER QUADRANT PAIN. HISTORY OF CHOLECYSTECTOMY TECHNIQUE: Real-time scanning was performed of the abdominal and retroperitoneal organs, with image documentation. COMPARISON: [facility], CT, CT CHEST ABD PEL W CON, 05/31/2019, 13:53. FINDINGS: Liver: Liver is normal in size . Heterogeneous liver parenchymal echotexture is seen with multiple solid appearing hepatic lesions measures up to 4.5 x 4.1 x 3.8 cm in size in medial segment of left hepatic lobe, and up to 4.7 x 5.1 x 4 cm in size in lateral segment of left hepatic lobe. There is a complex heterogeneously hyperechoic and solid appearing right hepatic lobe lesion measures 5.3 x 7.1 x 3.4 cm in size with internal cystic areas. Internal vascularity is also seen. 8.8 x 8.8 x 7 cm heterogeneously hyperechoic and solid appearing lesion is also noted in posterior right hepatic lobe with internal vascularity. Gallbladder: Gallbladder is surgically absent. Biliary ducts: Intrahepatic bile ducts are non-dilated. Extrahepatic bile duct caliber measures 4.3 mm. Normal is 6-7 mm or less in diameter, or 10 mm or less post-cholecystectomy. Pancreas: Visualized portions of the pancreas are sonographically normal. IMPRESSION: 1. Multiple heterogeneously hyperechoic and solid appearing lesions scattered in right and left hepatic lobes as described above. Finding is concerning for metastatic disease in the liver, new since previous CT of chest, abdomen and pelvis study. 2. No biliary ductal dilatation. Prior cholecystectomy. Dictated by: Wolf Roth M.D. on 06/16/2020 at 10:19 CT scan - abdomen/pelvis: Radiologist's Impression: PROCEDURE: CT CHEST ABD PEL W CON INDICATIONS: hx breast ca--masses in liver TECHNIQUE: After the administration of intravenous contrast, 5 mm thick sections acquired from the lung apices to the symphysis. 5 mm coronal and sagittal reformats were performed, with additional 7 mm MIP reformats through the lungs. For radiation dose reduction, the following was used: automated exposure control, adjustment of mA and/or kV according to patient size. COMPARISON: [facility], US, US ABDOMEN LIMITED, 06/16/2020, 10:24. [facility], CT, CT CHEST ABD PEL W CON, 05/31/2019, 13:53. FINDINGS: Image quality: Excellent. CHEST: Lungs and pleura: There is a very small focal peripheral left upper lobe ground-glass opacity on image 91/3, a nonspecific finding. Lungs are otherwise clear. No suspicious pulmonary nodules. No pleural effusions or pneumothorax. Central and peripheral airways appear patent and normal in caliber. Mediastinum: Heart size is normal. No pericardial effusion. No mediastinal or hilar adenopathy by size criteria. Thoracic aorta and central pulmonary arteries are normal in size. Esophagus is normal in caliber. No hiatal hernia. Chest wall: No axillary or supraclavicular adenopathy by size criteria. Thyroid gland is unremarkable. Bilateral mastectomies and mammoplasties. Today's study utilized a left arm injection. There are extensive collaterals in the left shoulder and left chest. There is presumed stenosis or occlusion of the left subclavian vein. Similar findings were present in the other study, in which a right arm injection was utilized. Findings from the prior study highly suggestive of a right subclavian vein occlusion. Interval healing of posterior left rib fractures. ABDOMEN: Solid organs: Liver: Interval development of extensive bilateral liver metastatic disease since the prior CT. Index lesions are as follows: Segments 7 and 8 of the right lobe: Centrally necrotic mass measuring 7.7 x 9.0 x 8.2 cm. Reference image 35/5 and image 63/2. Segment 4 of the left lobe: Centrally necrotic mass measuring 5.2 x 4.5 x 4.6 cm. Reference image 18/5 and image 71/2. Segment 3 of the left lobe, centrally necrotic mass measuring 4.4 x 4.5 x 4.2 cm. Reference image 18/5 and image 68/2. Gallbladder is surgically absent . Biliary system is non dilated. Pancreas enhances normally. Spleen is normal in size and enhancement. No adrenal nodules. Kidneys demonstrate normal size and enhancement, without hydronephrosis. Peritoneum and bowel: Bowel loops demonstrate normal wall thickness and caliber. No free fluid or air. Very large amount of fecal debris, as before. Nodes and vessels: No retroperitoneal or mesenteric adenopathy by size criteria. Aorta and inferior vena cava are normal in size. Miscellaneous: No ventral hernias. PELVIS: Genitourinary: Bladder wall thickness is normal. Miscellaneous: No inguinal hernias or adenopathy. Uterus is surgically absent. Bones: No suspicious bony lesions. No vertebral body compression fractures. IMPRESSION: 1. Interval development of extensive liver metastatic disease. Index lesions as described above. 2. No evidence of metastatic disease in the chest. 3. 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 4. Large fecal load, as before. Dictated by: Fred Rocha M.D. on 06/16/2020 at 11:07 ECG Data Attestation: I personally reviewed and interpreted this ECG as follows: Prior ECG tracings: available for review Interpretation: Normal sinus rhythm rate 55 p.r. interval 144 QRS [address] changes no T-wave inversions MDM Narrative Medical decision making narrative: Patient is not wanting any pain medication she is found to have liver masses. She has CT scan a year ago these were not present then. She says that she really has only had pain is symptoms ongoing for about 5 days. I did call and leave a message with the nurse of her PCP telling them she has referral to Oncology and she needs biopsy. Discussed results with patient and her . I discussed all findings with the patient spouse, Education has been performed regarding treatment plan, diagnosis, warning signs and symptoms and all concerns have been addressed. Verbally agree with and understood all of the above. Discharge Plan Departure Patient Disposition: Home Clinical Impression: Cancer, metastatic to liver Instructions: DI for Liver Biopsy, DI for Liver Cancer Activity Restrictions/Additional Instructions: *You have been diagnosed with liver metastasis *What to do: You will need further still evaluation such as liver biopsy and oncology referral. *Continue to take medications as directed Zofran 4 mg every 8 hours if needed for nausea vomiting--> SENT TO [facility] IN [place] *Follow up with your primary care provider in 2-3 days *Return to ER if you should have increasing pain persistent vomiting or any new, worsening or concerning symptoms Prescriptions: New ondansetron 4 mg tablet,disintegrating 4 mg PO Q8H PRN (Reason: nausea and vomiting) Qty: 10 RF: 0 No Action carbamazepine 200 MG tablet 200 mg PO BID Qty: 0 RF: 0 ASPIRIN (#ASPIRIN) 81 mg PO Q DAY Qty: 0 RF: 0 Pseudoephedrine Hydrochlorid (#SUDAFED) 60 mg PO PRN Qty: 0 RF: 0 ASCORBIC ACID (VITAMIN C (CHEWABLE)) 1,000 mg PO Q DAY Qty: 0 RF: 0 CA PANTOTHENATE/FOLIC ACID/VIT (MULTIVITAMIN) 1 tab PO Q DAY Qty: 0 RF: 0 VITAMIN D (Vitamin D3) 1,000 unit PO QDAY Qty: 0 RF: 0 docusate sodium 100 MG capsule 100 mg PO Qty: 0 RF: 0 [DHEA] 25 mg PO Qty: 0 RF: 0 ginkgo biloba 120 MG tablet 120 mg PO Qty: 0 RF: 0 melatonin 5 MG tablet Qty: 0 RF: 0 lysine HCl 500 MG tablet 500 mg PO Qty: 0 RF: 0 omega 6-bmc-liv-fish oil [Fish Oil] 1,000 MG capsule 1,000 mg PO Qty: 0 RF: 0 mometasone 0.1 % solution 1 julien Topical Qty: 0 RF: 0 estradiol [Yuvafem] 10 mcg tablet See Rx Instructions .ROUTE .COMPLEX Qty: 36 RF: 0 ondansetron 4 mg tablet,disintegrating 4 mg PO Q6H PRN (Reason: nausea and vomiting) Qty: 20 RF: 0 hydrocodone-acetaminophen [[place]] 5-325 mg tablet 1 tab PO Q4-6H PRN (Reason: pain) Qty: 10 RF: 0 Referrals: Tom Tse DO [Primary Care Provider] -
[2020-06-16 10:11] LABS: Add Manual Diff / Slide Review NO; Basophils Absolute Auto 0 /uL (0-100); Basophils Percent Auto 0.4 % (0-2); Eosinophils Absolute Auto 100 /uL (0-450); Eosinophils Percent Auto 1.7 % (2-4); Hematocrit 30.9 % (36-46); Hemoglobin 10.1 g/dL (12.0-16.0); Lymphocytes Absolute Auto 1000 /uL (1100-4500); Lymphocytes Percent Auto 22.8 % (25-40); Mean Corpuscular HGB Conc 32.6 % (30-36); Mean Corpuscular Hemoglobin 28.3 PG (26-34); Mean Corpuscular Volume 86.9 fL (80-100); Monocytes Absolute Auto 500 /uL (0-900); Neutrophils Absolute Auto 2700 /uL (1500-7000); Neutrophils Percent Auto 64.1 % (50-75); Platelet Count 197 X10^3/uL (150-400); Red Blood Cell Count 3.56 X10^6/uL (4.0-5.2); Red Cell Distribution Width 16.2 % (11.6-14.8); White Blood Cell Count 4.2 X10^3/uL (4.5-11.0)
[2020-06-16 10:13] LABS: INR 1.1 (0.9-1.3); Prothrombin Time 12.5 SECONDS (10.1-12.7)
[2020-06-16 10:15] LABS: PTT Partial Thromboplastin Tim 49 SECONDS (26.4-36.2)
[2020-06-16 10:18] LABS: Alanine Aminotransferase 176 IU/L (<35); Albumin 3.8 g/dL (3.5-5.0); Albumin Globulin Ratio 1.4 (1.0-2.8); Alkaline Phosphatase 160 U/L (38-126); Aspartate Aminotransferase 173 IU/L (14-36); BUN Creatinine Ratio 29.3 (6-22); Bilirubin Total 0.3 mg/dL (0.2-1.3); Blood Urea Nitrogen 17 mg/dL (7-17); Calcium 8.9 mg/dL (8.4-10.2); Carbon Dioxide 25 mmol/L (22-32); Chloride 102 mmol/L (98-107); Estimated Glomerular Filt Rate > 60.0 mL/min (>60); Globulin 2.8 g/dL (1.7-4.1); Glucose 89 mg/dL (80-110); HEMOLYSIS < 15 (0-50); Lipase 281 U/L (23-300); Sodium 133 mmol/L (137-145); Total Protein 6.6 g/dL (6.3-8.2)
--- NOTE | 2020-06-16 10:50 | DI.CT.S_ITS ---
PROCEDURE: CT CHEST ABD PEL W CON INDICATIONS: hx breast ca--masses in liver TECHNIQUE: After the administration of intravenous contrast, 5 mm thick sections acquired from the lung apices to the symphysis. 5 mm coronal and sagittal reformats were performed, with additional 7 mm MIP reformats through the lungs. For radiation dose reduction, the following was used: automated exposure control, adjustment of mA and/or kV according to patient size. COMPARISON: [facility], US, US ABDOMEN LIMITED, 06/16/2020, 10:24. [facility], CT, CT CHEST ABD PEL W CON, 05/31/2019, 13:53. FINDINGS: Image quality: Excellent. CHEST: Lungs and pleura: There is a very small focal peripheral left upper lobe ground-glass opacity on image 91/3, a nonspecific finding. Lungs are otherwise clear. No suspicious pulmonary nodules. No pleural effusions or pneumothorax. Central and peripheral airways appear patent and normal in caliber. Mediastinum: Heart size is normal. No pericardial effusion. No mediastinal or hilar adenopathy by size criteria. Thoracic aorta and central pulmonary arteries are normal in size. Esophagus is normal in caliber. No hiatal hernia. Chest wall: No axillary or supraclavicular adenopathy by size criteria. Thyroid gland is unremarkable. Bilateral mastectomies and mammoplasties. Today's study utilized a left arm injection. There are extensive collaterals in the left shoulder and left chest. There is presumed stenosis or occlusion of the left subclavian vein. Similar findings were present in the other study, in which a right arm injection was utilized. Findings from the prior study highly suggestive of a right subclavian vein occlusion. Interval healing of posterior left rib fractures. ABDOMEN: Solid organs: Liver: Interval development of extensive bilateral liver metastatic disease since the prior CT. Index lesions are as follows: Segments 7 and 8 of the right lobe: Centrally necrotic mass measuring 7.7 x 9.0 x 8.2 cm. Reference image 35/5 and image 63/2. Segment 4 of the left lobe: Centrally necrotic mass measuring 5.2 x 4.5 x 4.6 cm. Reference image 18/5 and image 71/2. Segment 3 of the left lobe, centrally necrotic mass measuring 4.4 x 4.5 x 4.2 cm. Reference image 18/5 and image 68/2. Gallbladder is surgically absent . Biliary system is non dilated. Pancreas enhances normally. Spleen is normal in size and enhancement. No adrenal nodules. Kidneys demonstrate normal size and enhancement, without hydronephrosis. Peritoneum and bowel: Bowel loops demonstrate normal wall thickness and caliber. No free fluid or air. Very large amount of fecal debris, as before. Nodes and vessels: No retroperitoneal or mesenteric adenopathy by size criteria. Aorta and inferior vena cava are normal in size. Miscellaneous: No ventral hernias. PELVIS: Genitourinary: Bladder wall thickness is normal. Miscellaneous: No inguinal hernias or adenopathy. Uterus is surgically absent. Bones: No suspicious bony lesions. No vertebral body compression fractures. IMPRESSION: 1. Interval development of extensive liver metastatic disease. Index lesions as described above. 2. No evidence of metastatic disease in the chest. 3. 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 4. Large fecal load, as before. Dictated by: Fred Rocha M.D. on 06/16/2020 at 11:07 Approved by: Fred Rocha M.D. on 06/16/2020 at 11:27
[2020-06-16 10:58] LABS: Creatine Kinase 116 U/L (30-135)
[2020-06-16 11:11] LABS: Troponin I < 0.012 ng/mL (0.01-0.034)
[2020-06-16 11:14] LABS: CKMB % Relative Index 1.4 % (1.5-5.0); Creatine Kinase MB 1.68 ng/mL (<2.37)
[2020-06-16 13:00] VITALS: BP 154/76; PULSE 65; RESP 14; O2SAT 99
== END 2020-06-16 13:02 | disposition home or self-care (01) ==
PROVIDERS: Emergency Provider Emergency Medicine; PCP Family Medicine
DX: C78.7 Secondary malignant neoplasm of liver and intrahepatic bile duct (principal); R11.0 Nausea; R10.11 Right upper quadrant pain
CPT/HCPCS: 36415; 71260; 74177; 76705; 80053; 82550; 82553; 83690; 84484; 85025; 85610; 85730; 93005; 93010; 99284; Q9967

== ENCOUNTER 2020-06-20 12:04 | Emergency (ER) | payer MEDICARE, OTHER, SELFPAY ==
[2020-06-20 12:11] VITALS: BP 143/73; PULSE 69; RESP 15; TEMP 36.8; O2SAT 99
[2020-06-20 12:33] LABS: Add Manual Diff / Slide Review NO; Basophils Absolute Auto 0 /uL (0-100); Basophils Percent Auto 0.3 % (0-2); Eosinophils Absolute Auto 0 /uL (0-450); Eosinophils Percent Auto 0.5 % (2-4); Hematocrit 34.7 % (36-46); Hemoglobin 11.4 g/dL (12.0-16.0); Lymphocytes Absolute Auto 1000 /uL (1100-4500); Lymphocytes Percent Auto 12.7 % (25-40); Mean Corpuscular Hemoglobin 28.9 PG (26-34); Mean Corpuscular Volume 87.7 fL (80-100); Monocytes Absolute Auto 900 /uL (0-900); Monocytes Percent Auto 10.7 % (3-14); Neutrophils Absolute Auto 6000 /uL (1500-7000); Neutrophils Percent Auto 75.8 % (50-75); Platelet Count 225 X10^3/uL (150-400); Red Blood Cell Count 3.95 X10^6/uL (4.0-5.2); Red Cell Distribution Width 17.2 % (11.6-14.8)
[2020-06-20 12:39] LABS: Prothrombin Time 11.8 SECONDS (10.1-12.7)
[2020-06-20 12:41] LABS: PTT Partial Thromboplastin Tim 44 SECONDS (26.4-36.2)
[2020-06-20 12:47] LABS: Alanine Aminotransferase 171 IU/L (<35); Albumin 4.1 g/dL (3.5-5.0); Albumin Globulin Ratio 1.4 (1.0-2.8); Alkaline Phosphatase 184 U/L (38-126); Aspartate Aminotransferase 217 IU/L (14-36); BUN Creatinine Ratio 21.1 (6-22); Bilirubin Total 0.3 mg/dL (0.2-1.3); Blood Urea Nitrogen 12 mg/dL (7-17); Calcium 9.2 mg/dL (8.4-10.2); Carbon Dioxide 24 mmol/L (22-32); Chloride 98 mmol/L (98-107); Estimated Glomerular Filt Rate > 60.0 mL/min (>60); Glucose 97 mg/dL (80-110); HEMOLYSIS 16 (0-50); Lipase 293 U/L (23-300); Potassium 4.2 mmol/L (3.4-5.1); Sodium 130 mmol/L (137-145); Total Protein 7.1 g/dL (6.3-8.2)
--- NOTE | 2020-06-20 14:48 | ED_ITS ---
HPI - Abdominal Pain General Chief Complaint: Abdominal Pain Stated Complaint: increased pain in RUQ abdomen, liver masses Time Seen by Provider: 06/20/20 14:46 Source: patient and family () Mode of arrival: Wheelchair Limitations: no limitations History of Present Illness HPI narrative: This is a 69-year-old female comes in with complaint of right upper quadrant abdominal pain. Patient was seen on the and diagnosed with liver masses. She is scheduled for IR guided biopsy on . Patient stat es she was having some abdominal pain on the but did not feel like she needed any oral pain medications when she was discharged from the emergency department. Her pain has continued to increase. She tried 3 [place] overnight and early this morning with some improvement but these are from an old prescription and she does not have any additional. She has not had any fevers or chills. She denies any cough cold congestion. She denies any shortness of breath. She has pain in the right side of her abdomen and does feel like things have had increased pressure. Patient has had nausea. She did vomit but has not been actively vomiting recently. Patient states she has been having bowel move ments which have been regular without any melena or hematochezia. She states her urine has been normal with no dysuria, urgency or frequency. Patient takes Tegretol for trigeminal neuralgia. Related Data Home Medications Medication Instructions Recorded Confirmed ASPIRIN (#ASPIRIN) 81 mg PO Q DAY #0 03/19/11 02/05/19 carbamazepine 200 mg PO BID #0 03/19/11 02/05/19 ASCORBIC ACID (VITAMIN C 1,000 mg PO Q DAY #0 11/22/11 02/05/19 (CHEWABLE)) CA PANTOTHENATE/FOLIC ACID/VIT 1 tab PO Q DAY #0 11/22/11 02/05/19 (MULTIVITAMIN) Pseudoephedrine Hydrochlorid 60 mg PO PRN #0 11/22/11 02/05/19 (#SUDAFED) VITAMIN D (Vitamin D3) 1,000 unit PO QDAY #0 02/04/12 02/05/19 [DHEA] 25 mg PO #0 02/19/16 02/05/19 docusate sodium 100 mg PO #0 02/19/16 02/05/19 ginkgo biloba 120 mg PO #0 02/19/16 02/05/19 lysine HCl 500 mg PO #0 02/19/16 02/05/19 melatonin #0 02/19/16 02/05/19 mometasone 1 julien TOPICAL #0 02/19/16 02/05/19 omega 2-spb-ajy-fish oil [Fish Oil] 1,000 mg PO #0 02/19/16 02/05/19 Previous Rx's Medication Instructions Recorded hydrocodone-acetaminophen [Macomb] 1 tab PO Q4-6H PRN #10 tab 05/31/19 ondansetron 4 mg PO Q6H PRN #20 tab 05/31/19 estradiol 10 mcg vaginal tablet See Rx Instructions .ROUTE 06/09/20 .COMPLEX #36 tablet ondansetron 4 mg PO Q8H PRN #10 tab 06/16/20 ondansetron HCl [Zofran] 4 mg PO Q6H PRN #20 tab 06/20/20 oxycodone 5 mg PO QID PRN #20 tab 06/20/20 Allergies Allergy/AdvReac Type Severity Reaction Status Date / Time neomycin Allergy Unknown Itches and Verified 06/20/20 12:10 hurts, little blisters morphine AdvReac Unknown SEVERE Verified 06/20/20 12:10 NAUSEA/VOMITING Review of Systems Review of Systems ROS Unobtainable: All systems reviewed & are unremarkable except as noted in HPI and below Patient History Surgical History History of total mastectomy Status post laparoscopic cholecystectomy Status post myringotomy with insertion of tube Status post tubal ligation Status post vaginal hysterectomy Social History Smoking Status: Never smoker Smoking Status: Never smoker alcohol intake frequency: other Substance Use Type: does not use Exam Narrative Exam Narrative: GENERAL: Alert and oriented x three, well-nourished female in moderate distress. HEENT: Head normocephalic, atraumatic, EOMI, pupils reactive, face symmetric, moist mucous membranes NECK: Supple, full range of motion CARDIOVASCULAR: Regular rate and rhythm without murmurs, rubs or gallops. RESPIRATORY: Breath sounds equal bilaterally, no wheezes rales or rhonchi. ABDOMEN: Soft, positive for right upper quadrant. Normoactive bowel sounds all 4 quadrants. No guarding or rebound, rigidity, no mass, slightly distended. No fluid wave. : No CVA tenderness EXTREMITIES: Normal range of motion, no clubbing or edema. Neurovascularly intact NEUROLOGICAL: Cranial nerves II through XII grossly intact. Moving all extremities SKIN: Warm, dry, no petechiae, no rashes or lesions. Initial Vital Signs Initial Vital Signs: Vital Signs Temperature 98.3 F 06/20/20 12:11 Pulse Rate 69 06/20/20 12:11 Respiratory Rate 15 06/20/20 12:11 Blood Pressure 143/73 H 06/20/20 12:11 Pulse Oximetry 99 06/20/20 12:11 Course Orders Ordered: ED Orders 06/20/20 12:15 Complete Blood Count AUTO DIFF Stat Comprehensive Metabolic Panel Stat Lipase Stat Partial Thromboplastin Time Stat Prothrombin Time INR Stat 06/20/20 12:16 EKG-12 Lead Stat Discontinued Medications Oxycodone HCl (Oxycodone Ir 5 Mg Tablet) 5 mg PO NOW ONE Stop: 06/20/20 15:41 Last Admin: 06/20/20 15:49 Dose: 5 mg Documented by: PAPI Reevaluation(s) Reevaluation #1: Patient is feeling better after pain medications. Plan for rx for oxycodone with zofron rx. Return precautions. Patient has followup on for IR biopsy. Reviewed patients labs from today. Time: 15:43 Vital Signs Vital signs: Vital Signs - 8 hr 06/20/20 12:11 06/20/20 16:03 Temperature 98.3 F Pulse Rate 69 61 Respiratory Rate 15 16 Blood Pressure 143/73 H 136/66 Pulse Oximetry 99 98 MDM - Abdominal Pain Lab Data Attestation: I reviewed the patient's lab results. Result diagrams: 06/20/20 12:15 06/20/20 12:15 Labs: Lab Results 06/20/20 06/20/20 06/20/20 Range/Units 12:15 12:15 12:15 WBC 8.0 (4.5-11.0) X10^3/uL RBC 3.95 L (4.0-5.2) X10^6/uL Hgb 11.4 L (12.0-16.0) g/dL Hct 34.7 L (36-46) % MCV 87.7 (80-100) fL MCH 28.9 (26-34) PG MCHC 33.0 (30-36) % RDW 17.2 H (11.6-14.8) % Plt Count 225 (150-400) X10^3/uL Neut % (Auto) 75.8 H (50-75) % Lymph % (Auto) 12.7 L (25-40) % [place] % (Auto) 10.7 (3-14) % Eos % (Auto) 0.5 L (2-4) % Baso % (Auto) 0.3 (0-2) % Neut # (Auto) 6000 (1510-7819) /uL Lymph # (Auto) 1000 L (3168-7359) /uL [place] # (Auto) 900 (0-900) /uL Eos # (Auto) 0 (0-450) /uL Baso # (Auto) 0 (0-100) /uL PT 11.8 (10.1-12.7) SECONDS INR 1.0 (0.9-1.3) APTT 44 H (26.4-36.2) SECONDS Sodium 130 L (137-145) mmol/L Potassium 4.2 (3.4-5.1) mmol/L Chloride 98 (98-107) mmol/L Carbon Dioxide 24 (22-32) mmol/L BUN 12 (7-17) mg/dL Creatinine 0.57 (0.52-1.04) mg/dL Estimated GFR > 60.0 (>60) mL/min BUN/Creatinine Ratio 21.1 (6-22) Glucose 97 (80-110) mg/dL Calcium 9.2 (8.4-10.2) mg/dL Total Bilirubin 0.3 (0.2-1.3) mg/dL AST 217 H (14-36) IU/L ALT 171 H (<35) IU/L Alkaline Phosphatase 184 H (38-126) U/L Total Protein 7.1 (6.3-8.2) g/dL Albumin 4.1 (3.5-5.0) g/dL Globulin 3.0 (1.7-4.1) g/dL Albumin/Globulin Ratio 1.4 (1.0-2.8) Lipase 293 (23-300) U/L Imaging Data CT scan - abdomen/pelvis: Radiologist's Impression: [facility] [place] [id number] Scan ReportSigned Patient: Nikole Flaherty LMR#: [id number]: 9Acct:[id number]/Sex: 69 / FDate of Service: 06/16/20Loc: EDAccession Number: [id number] Procedure: CT chest abd pel w con Ordering Provider: Barbi Walker D.O. PROCEDURE: CT CHEST ABD PEL W CON INDICATIONS: hx breast ca--masses in liver TECHNIQUE: After the administration of intravenous contrast, 5 mm thick sections acquired from the lung apices to the symphysis. 5 mm coronal and sagittal reformats were performed, with additional 7 mm MIP reformats through the lungs. For radiation dose reduction, the following was used: automated exposure control, adjustment of mA and/or kV ac cording to patient size. COMPARISON: [facility], US, US ABDOMEN LIMITED, 06/16/2020, 10:24. [facility], CT, CT CHEST ABD PEL W CON, 05/31/2019, 13:53. FINDINGS: Image quality: Excellent. CHEST: Lungs and pleura: There is a very small focal peripheral left upper lobe ground-glass opacity on image 91/3, a nonspecific finding. Lungs are otherwise clear. No suspicious pulmonary nodules. No pleural effusions or pneumothorax. Central and peripheral airways appear patent and normal in caliber. Mediastinum: Heart size is normal. No pericardial effusion. No mediastinal or hilar adenopathy by size criteria. Thoracic aorta and central pulmonary arteries are normal in size. Esophagus is normal in caliber. No hiatal hernia. Chest wall: No axillary or supraclavicular adenopathy by size criteria. Thyroid gland is unremarkable. Bilateral mastectomies and mammoplasties. Today's study utilized a left arm injection. There are extensive collaterals in the left shoulder and left chest. There is presumed stenosis or occlusion of the left subclavian vein. Similar findings were present in the other study, in which a right arm injection was utilized. Findings from the prior study highly suggestive of a right subclavian vein occlusion. Interval healing of posterior left rib fractures. ABDOMEN: Solid organs: Liver: Interval development of extensive bilateral liver metastatic disease since the prior CT. Index lesions are as follows: Segments 7 and 8 of the right lobe: Centrally necrotic mass measuring 7.7 x 9.0 x 8.2 cm. Reference image 35/5 and image 63/2. Segment 4 of the left lobe: Centrally necrotic mass measuring 5.2 x 4.5 x 4.6 cm. Reference image 18/5 and image 71/2. Segment 3 of the left lobe, centrally necrotic mass measuring 4.4 x 4.5 x 4.2 cm. Reference image 18/5 and image 68/2. Gallbladder is surgically absent . Biliary system is non dilated. Pancreas enhances normally. Spleen is normal in size and enhancement. No adrenal nodules. Kidneys demonstrate normal size and enhancement, without hydronephrosis. Peritoneum and bowel: Bowel loops demonstrate normal wall thickness and caliber. No free fluid or air. Very large amount of fecal debris, as before. Nodes and vessels: No retroperitoneal or mesenteric adenopathy by size criteria. Aorta and inferior vena cava are normal in size. Miscellaneous: No ventral hernias. PELVIS: Genitourinary: Bladder wall thickness is normal. Miscellaneous: No inguinal hernias or adenopathy. Uterus is surgically absent. Bones: No suspicious bony lesions. No vertebral body compression fractures. IMPRESSION: 1. Interval development of extensive liver metastatic disease. Index lesions as described above. 2. No evidence of metastatic disease in the chest. 3. 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 4. Large fecal load, as before. Dictated by: Fred Rocha M.D. on 06/16/2020 at 11:07 Approved by: Fred Rocha M.D. on 06/16/2020 at 11:27 [facility] Narrative Medical decision making narrative: This is a 69-year-old female who comes in with increasing abdominal pain in the setting of what appears to be metastatic disease in her liver. Patient defers any additional imaging she has plan for IR guided biopsy in 2 days on and feels it would not be significantly helpful. Patient does have elevation her liver enzymes but they have not changed significantly which not suggest any new significant blockage at this moment. Patient was given some pain medication here she did have some improvement. Discussed possible options for pain and elected for oxycodone to given patient more flexibility in pain management. Discussed return precautions and signs to watch for with both patient and her . They both expressed understanding and all questions were answered. Discharge Plan Departure Patient Disposition: Home Clinical Impression: Abdominal pain, Cancer, metastatic to liver Activity Restrictions/Additional Instructions: Follow up with your physician for refills as needed. Call for an appointment if you have not already. You may take Zofran 1 tablet every 4 hours as needed for nausea. You may take 1-2 tabs of narcotic pain medication every 6 hours as needed. This medication will make you sleepy do not drive, perform hazardous activities or make any major decisions while taking it. Prescription to [facility] in [place] This medication will make you constipated make sure your taking a stool softener 1-2 tablets daily until stools are soft and regular. Also make sure you are drinking plenty of fluids to help stool softeners be effective. Please return for fevers, rapidly worsening pain, lightheadedness or passing out, persistent vomiting, black or bloody stools, inability to have a bowel movement, jaundice, other color changes to the skin or new swelling in extremities. Prescriptions: New oxycodone 5 mg tablet 5 mg PO QID PRN (Reason: pain) Qty: 20 RF: 0 ondansetron HCl [Zofran] 4 mg tablet 4 mg PO Q6H PRN (Reason: nausea and vomiting) Qty: 20 RF: 0 No Action carbamazepine 200 MG tablet 200 mg PO BID Qty: 0 RF: 0 ASPIRIN (#ASPIRIN) 81 mg PO Q DAY Qty: 0 RF: 0 Pseudoephedrine Hydrochlorid (#SUDAFED) 60 mg PO PRN Qty: 0 RF: 0 ASCORBIC ACID (VITAMIN C (CHEWABLE)) 1,000 mg PO Q DAY Qty: 0 RF: 0 CA PANTOTHENATE/FOLIC ACID/VIT (MULTIVITAMIN) 1 tab PO Q DAY Qty: 0 RF: 0 VITAMIN D (Vitamin D3) 1,000 unit PO QDAY Qty: 0 RF: 0 docusate sodium 100 MG capsule 100 mg PO Qty: 0 RF: 0 [DHEA] 25 mg PO Qty: 0 RF: 0 ginkgo biloba 120 MG tablet 120 mg PO Qty: 0 RF: 0 melatonin 5 MG tablet Qty: 0 RF: 0 lysine HCl 500 MG tablet 500 mg PO Qty: 0 RF: 0 omega 2-ngg-xct-fish oil [Fish Oil] 1,000 MG capsule 1,000 mg PO Qty: 0 RF: 0 mometasone 0.1 % solution 1 julien Topical Qty: 0 RF: 0 estradiol [Yuvafem] 10 mcg tablet See Rx Instructions .ROUTE .COMPLEX Qty: 36 RF: 0 ondansetron 4 mg tablet,disintegrating 4 mg PO Q6H PRN (Reason: nausea and vomiting) Qty: 20 RF: 0 hydrocodone-acetaminophen [[place]] 5-325 mg tablet 1 tab PO Q4-6H PRN (Reason: pain) Qty: 10 RF: 0 ondansetron 4 mg tablet,disintegrating 4 mg PO Q8H PRN (Reason: nausea and vomiting) Qty: 10 RF: 0 Referrals: Tom Tse DO [Primary Care Provider] -
[2020-06-20] MEDS: HYDROMORPHONE 0.5 MG INJ (15:06)
[2020-06-20] MEDS: ONDANSETRON 4 MG/2 ML INJ (15:07)
[2020-06-20] MEDS: OXYCODONE IR 5 MG TABLET PO (15:49)
[2020-06-20 16:03] VITALS: BP 136/66; PULSE 61; RESP 16; O2SAT 98
== END 2020-06-20 16:04 | disposition home or self-care (01) ==
PROVIDERS: Emergency Medicine; Emergency Provider Emergency Medicine; PCP Family Medicine
DX: R10.11 Right upper quadrant pain (principal); C78.7 Secondary malignant neoplasm of liver and intrahepatic bile duct
CPT/HCPCS: 36415; 80053; 83690; 85025; 85610; 85730; 93005; 93010; 99284; J1170; J2405

== ENCOUNTER → 2020-07-05 10:05 | Outpatient (CLI) | payer MEDICARE, OTHER, SELFPAY ==
[2020-07-05 11:43] LABS: COVID19 -Nasal RAPID Negative (Negative)
== END ==
PROVIDERS: PCP Family Medicine; Visit Provider Surgery
DX: Z20.822 Contact with and (suspected) exposure to COVID-19 (principal)
CPT/HCPCS: 87635; C9803

== ENCOUNTER 2020-07-06 08:54 | Day surgery (SDC) | payer MEDICARE, OTHER, SELFPAY ==
[2020-07-06] VITALS (7 sets, daily range): BP systolic 110–133; BP diastolic 61–77; PULSE 52–63; RESP 12–18; TEMP 36.2–36.6; O2SAT 99–100
[2020-07-06] MEDS: SODIUM CHLORIDE 0.9% 1,000 ML 200 ML IV (09:56)
--- NOTE | 2020-07-06 09:57 | PM.HP.1 ---
History of Present Illness History of Present Illness Date Patient Seen: 07/06/20 Time Patient Seen: 09:57 Chief complaint: [facility] [place] Narrative: This is a 69-year-old woman who recently diagnosed with metastatic colon cancer to the liver. She came into the ER on June 16 with upper abdominal pain and on CT scan was found to have multiple lesions in the liver. She has had a biopsy, which per report was indicative of a colon cancer primary. She says that over the last few months she has noticed firmness and fullness in her upper abdomen which has become more uncomfortable over time. She denies any melena, hematochezia. She does sometimes feel bloating, but does not feel obstipated a constipated. Her primary care doctor called me yesterday and asked for her to have a colonoscopy to identify the primary lesion, tattoo it, and determine whether not it is at risk for obstruction. We have consulted the anesthesiologist to provide her sedation, as she is a medically high risk patient due to her untreated metastatic cancer, and this may be a prolonged procedure. Her last colonoscopy was 10-15 years ago. She does not recall anything abnormal being found on that exam. She denies any family history of colorectal cancer ROS: Denies dysuria, discolored urine, discolored stool, jaundice. Thirteen system review is otherwise negative other than as mentioned below and in HPI. PE: GENERAL: Well groomed and cooperative. Appears stated age. Answers questions promptly and appropriately. Vital signs noted. HENT: Normocephalic, atraumatic. Hearing intact. EYES: Conjunctiva pink, sclera white, no periorbital swelling. CARDIOVASCULAR: Regular rate. No pedal edema. RESPIRATORY: Non-tachypneic, breathing comfortably on room air. GASTROINTESTINAL: The upper abdomen is firm and tender on palpation, consistent with her enlarged liver. Generally her abdomen is not distended or tympanic. The lower abdomen is soft and normal on palpation. GENITALURINARY: No flank tenderness. MUSCULOSKELETAL: Equal tone and mass bilaterally. SKIN: Warm, dry, soft, appropriate color for ethnicity. No other lesions, rashes, or wounds. NEURO: Alert and Oriented X 3. No gross sensory deficits, or cognitive issues. PSYCH: Appropriate affect and mood. Patient History Surgical History History of total mastectomy Status post laparoscopic cholecystectomy Status post myringotomy with insertion of tube Status post tubal ligation Status post vaginal hysterectomy Family & Social History Social History: household members spouse Tobacco & Substance use: Smoking Status Never smoker alcohol intake frequency other Substance Use Type does not use Meds Home Medications and Allergies Home Medications Medication Instructions Recorded Confirmed Type ASPIRIN (#ASPIRIN) 81 mg PO Q DAY #0 03/19/11 07/06/20 History carbamazepine 200 mg PO BID #0 03/19/11 07/06/20 History ASCORBIC ACID (VITAMIN C 1,000 mg PO Q DAY #0 11/22/11 07/06/20 History (CHEWABLE)) CA PANTOTHENATE/FOLIC ACID/VIT 1 tab PO Q DAY #0 11/22/11 07/06/20 History (MULTIVITAMIN) Pseudoephedrine Hydrochlorid 60 mg PO PRN #0 11/22/11 07/06/20 History (#SUDAFED) docusate sodium 100 mg PO BID #0 02/19/16 07/06/20 History ginkgo biloba 120 mg PO DAILY #0 02/19/16 07/06/20 History lysine HCl 500 mg PO DAILY #0 02/19/16 07/06/20 History melatonin 5 mg PO BEDTIME #0 02/19/16 07/06/20 History mometasone 1 julien TOPICAL DAILY PRN #0 02/19/16 07/06/20 History ondansetron 4 mg PO Q6H PRN #20 tab 05/31/19 07/06/20 Rx estradiol 10 mcg vaginal tablet See Rx Instructions .ROUTE 06/09/20 07/06/20 Rx .COMPLEX #36 tablet oxycodone 5 mg PO QID PRN #20 tab 06/20/20 07/06/20 Rx calcium carbonate-vitamin D2 1 tab PO DAILY 07/06/20 07/06/20 History [Calcium + Vitamin D] flaxseed oil 1,400 mg PO BID 07/06/20 07/06/20 History krill oil mg PO BID 07/06/20 History lactobacillus comb no.10 20,000 mmu cells PO DAILY 07/06/20 07/06/20 History [Probiotic] selenium 200 mcg PO DAILY 07/06/20 07/06/20 History Allergies Allergy/AdvReac Type Severity Reaction Status Date / Time neomycin Allergy Unknown Itches and Verified 06/20/20 12:10 hurts, little blisters cat dander Allergy ITCHING Verified 07/06/20 09:30 morphine AdvReac Unknown SEVERE Verified 06/20/20 12:10 NAUSEA/VOMITING Exam Vital Signs (past 8 hours): - 07/06/20 09:37 Temperature 97.1 F L Pulse Rate 62 Respiratory Rate 13 Blood Pressure 133/77 Pulse Oximetry 99 Oxygen Delivery Method Room Air Oxygen Flow Rate 0 Assessment & Plan Assessment and plan (1) Metastasis to liver with unknown primary site: Status: Acute Assessment & Plan narrative: I had a long discussion with the patient regarding her symptoms, and the goals of today's exam. Risks and benefits of screening colonoscopy and possible polypectomy were discussed with the patient including risk of bleeding, perforation, need for additional procedures, risks of anesthesia. The patient desires to proceed with the colonoscopy procedure. I did explain to her that we would try to identify the colon primary, biopsy it if appropriate, and tattoo the area. COVID-19 COVID-19 status: Negative Result date/Date tested (Pos, Neg/Pending): 07/05/20 Time Spent With Patient Time with patient: 15-24 minutes Quality VTE Deep Vein Thrombosis/Pulmonary Embolism Present on Admission: No
--- NOTE | 2020-07-06 10:03 | PM.OP.ENDO ---
Operative Date/Time/Diagnoses Date of procedure: 07/06/20 Time of procedure: 10:03 Pre-op diagnosis: Liver metastases with suspected colonic primary Post-op diagnosis: other (Poor quality study, inadequately prepped colon) Procedure & Clinicians Study performed: Colonoscopy to hepatic flexure Same procedure as scheduled: Yes Indications: Liver metastases with suspected colonic primary; due to patient's medical fragility and the potential for a prolonged procedure, the anesthesiologist was consulted to provide deep sedation with propofol and close monitoring during the procedure with MAC. Surgeon: Antoinette Mclean Procedure Notes SCOAP/Timeout: Performed Procedure in detail: The patient was brought to the room and placed in left lateral decubitus position with all bony prominences padded. Monitored anesthesia care was provided by the anesthesiologist. Once adequately sedated, the procedure was begun. A rectal exam was performed revealing no abnormalities. The colonoscope was then introduced to the rectum and we immediately encountered solid stool. I painstakingly irrigated and suctioned out as much as I could, and carefully advanced the scope. There was solid stool throughout the colon, and I was not able to get past the hepatic flexure. Was not able to adequately visualize the colonic mucosa to rule out or rule in colon polyps or cancers. Once I determined that we could go no further, I carefully retracted the scope and looked as well as I could on retraction, but as there was still solid stool in the colon that could not be irrigated and suctioned clean, I was really not able to get an adequate exam of any portion of the colon. The scope was then withdrawn from the rectum the procedure was concluded. The patient tolerated the procedure well and was transferred to the PACU in stable condition. Scope withdrawal time: 18 Specimen(s): none sent Complications: other (Very poor prep, Unable to reach the cecum) Impression: Solid stool throughout the entire colon, unable to reach the cecum Post-procedure Recommendations: Other recommendation (Follow-up with medical oncologist and primary doctor, and discuss possible inpatient prep prior to re-attempt, or possible CT colonography/barium enema) Follow up: as needed Disposition: PACU
--- NOTE | 2020-07-06 11:21 | SUR.PHASEI ---
Received to PACU after MAC. Report received from ORLIN Manzanares and Dr Lang.
--- NOTE | 2020-07-06 12:27 | SUR.PHASEII ---
SBAR report from Samina ORDAZ at 12pm. Pt steady on feet. DC to home.
== END 2020-07-06 12:13 | disposition home or self-care (01) ==
PROVIDERS: PCP Family Medicine; Referring Provider Surgery; Visit Provider Surgery
PROC: 0DJD8ZZ Inspection of Lower Intestinal Tract, Via Natural or Artificial Opening Endoscopic (ICD-10-PCS; CPT 45378; principal; 2020-07-06 10:00)
DX: C18.9 Malignant neoplasm of colon, unspecified (principal); C78.7 Secondary malignant neoplasm of liver and intrahepatic bile duct; Z53.09 Procedure and treatment not carried out because of other contraindication
CPT/HCPCS: 45378; J2405; J2704; J3010

== ENCOUNTER 2020-07-30 22:37 | Emergency (ER) | payer MEDICARE, OTHER, SELFPAY ==
[2020-07-30 22:46] VITALS: BP 154/75; PULSE 80; O2SAT 99
[2020-07-30 22:48] VITALS: BP 154/75; PULSE 78; RESP 18; TEMP 37.1; O2SAT 98; BMI 17.9
--- NOTE | 2020-07-30 22:59 | ED_ITS ---
HPI - Abdominal Pain General Chief Complaint: Abdominal Pain Stated Complaint: STOMACH PAIN CHEMO PATIENT Time Seen by Provider: 07/30/20 22:57 Source: patient and family Mode of arrival: Wheelchair Limitations: no limitations History of Present Illness HPI narrative: Patient is a 69-year-old female who has presumed diagnosis of colon cancer with liver metastasis. She received her 1st dose of chemotherapy last week. Today she has noticed severe left-sided pain which is abnormal. It is quite intense sharp and stabbing. She has not had a bowel movement in 3 days which is not abnormal for her she continues to pass gas. She denies fevers chills nausea or vomiting. She did have a liver biopsy June 27 was showed metastatic poorly differentiated adenocarcinoma. She is being followed by Oncology as [facility]. They actually were unable to do a colonoscopy due to poor prep MD complaint: abdominal pain Onset (ago): hour(s) Pain Consistency: constant Location: [facility] Severity: severe Severity scale (1-10): 8 Quality: stabbing and sharp Related Data Home Medications Medication Instructions Recorded Confirmed ASPIRIN (#ASPIRIN) 81 mg PO Q DAY #0 03/19/11 07/06/20 carbamazepine 200 mg PO BID #0 03/19/11 07/06/20 ASCORBIC ACID (VITAMIN C 1,000 mg PO Q DAY #0 11/22/11 07/06/20 (CHEWABLE)) CA PANTOTHENATE/FOLIC ACID/VIT 1 tab PO Q DAY #0 11/22/11 07/06/20 (MULTIVITAMIN) Pseudoephedrine Hydrochlorid 60 mg PO PRN #0 11/22/11 07/06/20 (#SUDAFED) docusate sodium 100 mg PO BID #0 02/19/16 07/06/20 ginkgo biloba 120 mg PO DAILY #0 02/19/16 07/06/20 lysine HCl 500 mg PO DAILY #0 02/19/16 07/06/20 melatonin 5 mg PO BEDTIME #0 02/19/16 07/06/20 mometasone 1 julien TOPICAL DAILY PRN #0 02/19/16 07/06/20 Probiotic 20,000 mmu cells PO DAILY 07/06/20 07/06/20 calcium carbonate-vitamin D2 1 tab PO DAILY 07/06/20 07/06/20 flaxseed oil 1,400 mg PO BID 07/06/20 07/06/20 krill oil 500 mg PO BID 07/06/20 07/06/20 selenium 200 mcg PO DAILY 07/06/20 07/06/20 Previous Rx's Medication Instructions Recorded ondansetron 4 mg PO Q6H PRN #20 tab 05/31/19 estradiol 10 mcg vaginal tablet See Rx Instructions .ROUTE 06/09/20 .COMPLEX #36 tablet oxycodone 5 mg PO QID PRN #20 tab 06/20/20 Allergies Allergy/AdvReac Type Severity Reaction Status Date / Time neomycin Allergy Unknown Itches and Verified 06/20/20 12:10 hurts, little blisters cat dander Allergy ITCHING Verified 07/06/20 09:30 morphine AdvReac Unknown SEVERE Verified 06/20/20 12:10 NAUSEA/VOMITING Review of Systems Review of Systems Narrative: GENERAL: Denies chills, fatigue, malaise, fever, sweats, travel HEENT: Denies sinus pain, ear pain, sore throat, difficulty swallowing, neck pain RESPIRATORY: Denies dyspnea, cough, wheezing, hemoptysis, sputum. CARDIOVASCULAR: Denies chest pain, palpitations, orthopnea, edema GASTROINTESTINAL: See HPI : Denies dysuria, frequency, incontinence, hematuria, urinary retention, flank pain. MUSCULOSKELETAL: Denies weakness, joint pain, or bony pain SKIN: No rash, no erythema, no pruritus NEUROLOGIC: Denies weakness, dizziness, headache, numbness, change in speech, confusion PSYCHIATRIC: No concerning psychosocial issues. 12 point review of systems is negative except for those stated above and HPI Patient History Medical History (Updated 07/31/20 @ 01:41 by Barbi Walker DO) Metastasis to liver with unknown primary site Surgical History History of total mastectomy Status post laparoscopic cholecystectomy Status post myringotomy with insertion of tube Status post tubal ligation Status post vaginal hysterectomy Social History household members: spouse Smoking Status: Never smoker Smoking Status: Never smoker alcohol intake frequency: other Substance Use Type: does not use Exam Initial Vital Signs Initial Vital Signs: Vital Signs Pulse Rate 80 07/30/20 22:46 Blood Pressure 154/75 H 07/30/20 22:46 Pulse Oximetry 99 07/30/20 22:46 GENERAL: Alert 69-year-old female appears uncomfortable and in pain and in no acute distress. HEENT: Head atraumatic,EOMI, pupils reactive, face symmetric, moist mucous membranes CARDIOVASCULAR: Regular rate and rhythm without murmurs, rubs or gallops. RESPIRATORY: Breath sounds equal bilaterally, no wheezes rales or rhonchi. ABDOMEN: guarding, severe pain all across abdomen, nop distention. decrased bowl sounds EXTREMITIES: Normal range of motion, no clubbing or edema. Neurovascularly intact NEUROLOGICAL: Alert and oriented x4.Normal gait and speech. SKIN: Warm, dry, no laceration, no petechiae, no rashes or lesions. Course Orders Ordered: ED Orders 07/30/20 22:55 Complete Blood Count AUTO DIFF Stat Comprehensive Metabolic Panel Stat Lipase Stat Partial Thromboplastin Time Stat Prothrombin Time INR Stat 07/30/20 23:11 CT abdomen pelvis w con Stat Discontinued Medications Diphenhydramine HCl (Diphenhydramine 50 Mg/Ml Vial) 25 mg IV NOW ONE Stop: 07/31/20 02:32 Last Admin: 07/31/20 02:34 Dose: 25 mg Documented by: FAYE Hydromorphone HCl (Hydromorphone 0.5 Mg Inj) 0.5 mg IV NOW ONE Stop: 07/30/20 22:57 Last Admin: 07/30/20 23:01 Dose: 0.5 mg Documented by: BABATUNDE Hydromorphone HCl (Hydromorphone 1 Mg Inj) 1 mg IV NOW ONE Stop: 07/30/20 23:26 Last Admin: 07/30/20 23:28 Dose: 1 mg Documented by: BABATUNDE Hydromorphone HCl (Hydromorphone 1 Mg Inj) 1 mg IV NOW ONE Stop: 07/30/20 23:26 Last Admin: 07/31/20 00:44 Dose: 1 mg Documented by: FAYE Ketorolac Tromethamine (Ketorolac 30 Mg/Ml Vial) 30 mg IV NOW ONE Stop: 07/31/20 01:29 Last Admin: 07/31/20 01:32 Dose: 30 mg Documented by: FAYE Magnesium Citrate (Magnesium Citrate 300 Ml Solution) 300 ml PO NOW ONE Stop: 07/31/20 01:32 Last Admin: 07/31/20 01:34 Dose: 300 ml Documented by: FAYE Metoclopramide HCl (Metoclopramide Hcl 10 Mg Tablet) 10 mg PO NOW ONE Stop: 07/31/20 02:08 Last Admin: 07/31/20 02:12 Dose: 10 mg Documented by: FAYE Metoclopramide HCl (Metoclopramide 10 Mg/2 Ml Inj) 10 mg IV NOW ONE Stop: 07/31/20 02:32 Last Admin: 07/31/20 02:34 Dose: 10 mg Documented by: FAYE Ondansetron HCl (Ondansetron 4 Mg/2 Ml Inj) 4 mg IV NOW ONE Stop: 07/30/20 22:57 Last Admin: 07/30/20 23:02 Dose: 4 mg Documented by: BABATUNDE Ondansetron HCl (Ondansetron 4 Mg/2 Ml Inj) 4 mg IV NOW ONE Stop: 07/31/20 01:29 Last Admin: 07/31/20 01:32 Dose: 4 mg Documented by: FAYE Pantoprazole Sodium (Pantoprazole 40 Mg Vial) 40 mg IV NOW ONE Stop: 07/31/20 02:39 Last Admin: 07/31/20 02:42 Dose: 40 mg Documented by: FAYE Vital Signs Vital signs: Vital Signs - 8 hr 07/30/20 22:46 07/30/20 22:48 07/30/20 23:00 Temperature 98.8 F Pulse Rate 80 78 80 Respiratory Rate 18 22 Blood Pressure 154/75 H 154/75 H Pulse Oximetry 99 98 97 07/30/20 23:30 07/30/20 23:33 07/31/20 00:00 Temperature Pulse Rate 77 78 81 Respiratory Rate 24 18 20 Blood Pressure 146/70 H Pulse Oximetry 97 97 96 07/31/20 00:01 07/31/20 00:30 07/31/20 01:00 Temperature Pulse Rate 80 73 73 Respiratory Rate 21 17 18 Blood Pressure 128/77 119/64 113/59 L Pulse Oximetry 96 95 94 07/31/20 01:31 07/31/20 02:00 07/31/20 05:55 Temperature Pulse Rate 69 62 Respiratory Rate 14 16 Blood Pressure 178/92 H 125/65 117/67 Pulse Oximetry 93 97 07/31/20 06:00 Temperature Pulse Rate 61 Respiratory Rate 16 Blood Pressure 96/58 L Pulse Oximetry 98 MDM - Abdominal Pain Lab Data Attestation: I reviewed the patient's lab results. Result diagrams: 07/30/20 22:55 07/30/20 22:55 Labs: Lab Results 07/30/20 07/30/20 07/30/20 Range/Units 22:55 22:55 22:55 WBC 8.8 (4.5-11.0) X10^3/uL RBC 4.06 (4.0-5.2) X10^6/uL Hgb 11.9 L (12.0-16.0) g/dL Hct 36.0 (36-46) % MCV 88.8 (80-100) fL MCH 29.4 (26-34) PG MCHC 33.1 (30-36) % RDW 17.7 H (11.6-14.8) % Plt Count 207 (150-400) X10^3/uL Neut % (Auto) 68.6 (50-75) % Lymph % (Auto) 22.1 L (25-40) % Banner % (Auto) 7.8 (3-14) % Eos % (Auto) 1.2 L (2-4) % Baso % (Auto) 0.3 (0-2) % Neut # (Auto) 6000 (9702-4711) /uL Lymph # (Auto) 1900 (1236-7339) /uL Banner # (Auto) 700 (0-900) /uL Eos # (Auto) 100 (0-450) /uL Baso # (Auto) 0 (0-100) /uL PT 12.8 H (10.1-12.7) SECONDS INR 1.1 (0.9-1.3) APTT 41 H (26.4-36.2) SECONDS Sodium 132 L (137-145) mmol/L Potassium 3.8 (3.4-5.1) mmol/L Chloride 99 (98-107) mmol/L Carbon Dioxide 27 (22-32) mmol/L BUN 11 (7-17) mg/dL Creatinine 0.39 L (0.52-1.04) mg/dL Estimated GFR > 60.0 (>60) mL/min BUN/Creatinine Ratio 28.2 H (6-22) Glucose 114 H (80-110) mg/dL Calcium 8.7 (8.4-10.2) mg/dL Total Bilirubin 0.2 (0.2-1.3) mg/dL AST 75 H (14-36) IU/L ALT 40 H (<35) IU/L Alkaline Phosphatase 251 H (38-126) U/L Total Protein 6.6 (6.3-8.2) g/dL Albumin 3.5 (3.5-5.0) g/dL Globulin 3.1 (1.7-4.1) g/dL Albumin/Globulin Ratio 1.1 (1.0-2.8) Lipase 337 H (23-300) U/L Imaging Data CT scan - abdomen/pelvis: Radiologist's Impression: Preliminary report increased liver metastasis. Increased liver size now with hepatomegaly and no hemorrhage. 2. Abundant stool without bowel obstruction. MDM Narrative Medical decision making narrative: Patient requiring multiple doses of pain medication. CT does show constipation pain seems to be persistently in her left upper quadrant without really moving. She does get nauseated she required 2 doses of Zofran. Discussed with her about constipation medication and taking them at home she is on opiates at home. She was agreeable to go home however her IV was pulled and she immediately got nauseous and vomited quite a bit. She was given Reglan just prior to vomiting. IV was placed cyst she was given IV Reglan Benadryl and Protonix. Patient now sleeping. Patient feeling significantly better tolerating ice chips pain has resolved now feels ready and able to go. Discharge Plan Departure Patient Disposition: Home Clinical Impression: Constipation, Metastasis to liver with unknown primary site Instructions: DI for Constipation Activity Restrictions/Additional Instructions: *You have been diagnosed with constipation *What to do: At this time her CT does show a large amount of stool but no obstruction. I recommend stool softeners and laxatives until you have a bowel movement. OsmoPrep-are pills that you can take for colonoscopy prep please ask your provider for this when colonoscopy is needed *Continue to take medications as directed Dulcolax 100 mg twice a day Senokot 2 tablets at night MiraLax once a day if still needed *Follow up with your primary care provider in 2-3 days *Return to ER if you should have increasing pain, persistent vomiting, fever greater than 100.4 or any new, worsening or concerning symptoms Prescriptions: No Action carbamazepine 200 MG tablet 200 mg PO BID Qty: 0 RF: 0 ASPIRIN (#ASPIRIN) 81 mg PO Q DAY Qty: 0 RF: 0 Pseudoephedrine Hydrochlorid (#SUDAFED) 60 mg PO PRN Qty: 0 RF: 0 ASCORBIC ACID (VITAMIN C (CHEWABLE)) 1,000 mg PO Q DAY Qty: 0 RF: 0 CA PANTOTHENATE/FOLIC ACID/VIT (MULTIVITAMIN) 1 tab PO Q DAY Qty: 0 RF: 0 docusate sodium 100 MG capsule 100 mg PO BID Qty: 0 RF: 0 ginkgo biloba 120 MG tablet 120 mg PO DAILY Qty: 0 RF: 0 melatonin 5 MG tablet 5 mg PO BEDTIME Qty: 0 RF: 0 lysine HCl 500 MG tablet 500 mg PO DAILY Qty: 0 RF: 0 mometasone 0.1 % solution 1 julien Topical DAILY PRN (Reason: Itching) Qty: 0 RF: 0 estradiol [Yuvafem] 10 mcg tablet See Rx Instructions .ROUTE .COMPLEX Qty: 36 RF: 0 oxycodone 5 mg tablet 5 mg PO QID PRN (Reason: pain) Qty: 20 RF: 0 ondansetron 4 mg tablet,disintegrating 4 mg PO Q6H PRN (Reason: nausea and vomiting) Qty: 20 RF: 0 krill oil 500 mg Capsule 500 mg PO BID RF: 0 calcium carbonate-vitamin D2 600 mg calcium- 200 unit Tablet 1 tab PO DAILY RF: 0 flaxseed oil 1,030 mg Capsule 1,400 mg PO BID RF: 0 selenium 200 mcg Capsule 200 mcg PO DAILY RF: 0 Probiotic 20 billion cell Capsule 20,000 mmu cells PO DAILY RF: 0 Referrals: Tom Tse DO [Primary Care Provider] -
[2020-07-30 23:00] VITALS: PULSE 80; RESP 22; O2SAT 97
[2020-07-30] MEDS: HYDROMORPHONE 0.5 MG INJ IV (23:01)
[2020-07-30] MEDS: ONDANSETRON 4 MG/2 ML INJ IV (23:02)
[2020-07-30 23:03] LABS: Add Manual Diff / Slide Review NO; Basophils Absolute Auto 0 /uL (0-100); Basophils Percent Auto 0.3 % (0-2); Eosinophils Absolute Auto 100 /uL (0-450); Eosinophils Percent Auto 1.2 % (2-4); Hemoglobin 11.9 g/dL (12.0-16.0); Lymphocytes Absolute Auto 1900 /uL (1100-4500); Lymphocytes Percent Auto 22.1 % (25-40); Mean Corpuscular HGB Conc 33.1 % (30-36); Mean Corpuscular Hemoglobin 29.4 PG (26-34); Mean Corpuscular Volume 88.8 fL (80-100); Monocytes Absolute Auto 700 /uL (0-900); Monocytes Percent Auto 7.8 % (3-14); Neutrophils Absolute Auto 6000 /uL (1500-7000); Neutrophils Percent Auto 68.6 % (50-75); Platelet Count 207 X10^3/uL (150-400); Red Blood Cell Count 4.06 X10^6/uL (4.0-5.2); Red Cell Distribution Width 17.7 % (11.6-14.8); White Blood Cell Count 8.8 X10^3/uL (4.5-11.0)
[2020-07-30 23:11] LABS: INR 1.1 (0.9-1.3); Prothrombin Time 12.8 SECONDS (10.1-12.7)
--- NOTE | 2020-07-30 23:11 | DI.CT.S_ITS ---
PROCEDURE: CT ABDOMEN PELVIS W CON INDICATIONS: left sided ab pain with known liver metastasis TECHNIQUE: After the administration of intravenous contrast, 5 mm thick sections acquired from the diaphragm to the symphysis. 5 mm coronal and sagittal reformats were acquired. For radiation dose reduction, the following was used: automated exposure control, adjustment of mA and/or kV according to patient size. COMPARISON: [facility], CT, CT CHEST ABD PEL W CON, 06/16/2020, 10:49. [facility], [place], PET NECK TO MID THIGH, 07/19/2020, 13:49. FINDINGS: Image quality: Excellent. ABDOMEN: Lung bases: Lung bases are clear. Heart size is normal. Mammoplasty implants are incidentally noted. Solid organs: Extensive low-density liver metastases are again seen. Gallbladder has been removed. Biliary system is non dilated. Pancreas enhances normally. Spleen is normal in size and enhancement. No adrenal nodules. Kidneys demonstrate normal size and enhancement, without hydronephrosis. Peritoneum and bowel: Bowel loops demonstrate normal wall thickness and caliber. No free air. A moderate amount of stool can be seen within the colon. Minimal ascites is seen. Nodes and vessels: No retroperitoneal or mesenteric adenopathy by size criteria. Aorta and inferior vena cava are normal in size. Miscellaneous: No ventral hernias. PELVIS: Genitourinary: Bladder wall thickness is normal. Miscellaneous: No inguinal hernias or adenopathy. Bones: No suspicious bony lesions. No vertebral body compression fractures. S-shaped scoliotic curvature is seen. Degenerative changes are seen, which are worst involving the lumbar spine IMPRESSION: There is a moderate amount of stool seen within the colon. Please correlate with an underlying history of constipation. Extensive liver metastases again seen. Minimal ascites can be seen. Incidental note is made of: Mammoplasty implants Cholecystectomy Note: No significant discrepancy from the preliminary report. Dictated by: Juan Jose Phillip M.D. on 07/31/2020 at 7:59 Approved by: Juan Jose Phillip M.D. on 07/31/2020 at 8:04
[2020-07-30 23:14] LABS: PTT Partial Thromboplastin Tim 41 SECONDS (26.4-36.2)
[2020-07-30 23:15] LABS: Alanine Aminotransferase 40 IU/L (<35); Albumin 3.5 g/dL (3.5-5.0); Albumin Globulin Ratio 1.1 (1.0-2.8); Alkaline Phosphatase 251 U/L (38-126); Aspartate Aminotransferase 75 IU/L (14-36); BUN Creatinine Ratio 28.2 (6-22); Bilirubin Total 0.2 mg/dL (0.2-1.3); Blood Urea Nitrogen 11 mg/dL (7-17); Calcium 8.7 mg/dL (8.4-10.2); Carbon Dioxide 27 mmol/L (22-32); Chloride 99 mmol/L (98-107); Estimated Glomerular Filt Rate > 60.0 mL/min (>60); Globulin 3.1 g/dL (1.7-4.1); Glucose 114 mg/dL (80-110); HEMOLYSIS < 15 (0-50); Lipase 337 U/L (23-300); Potassium 3.8 mmol/L (3.4-5.1); Sodium 132 mmol/L (137-145); Total Protein 6.6 g/dL (6.3-8.2)
[2020-07-30] MEDS: HYDROMORPHONE 1 MG INJ IV (23:28)
[2020-07-30 23:30] VITALS: PULSE 77; RESP 24; O2SAT 97
[2020-07-30 23:33] VITALS: BP 146/70; PULSE 78; RESP 18; O2SAT 97
[2020-07-31] VITALS (8 sets, daily range): BP systolic 96–178; BP diastolic 58–92; PULSE 61–81; RESP 14–21; O2SAT 93–98
[2020-07-31] MEDS: HYDROMORPHONE 1 MG INJ IV (00:44)
[2020-07-31] MEDS: ONDANSETRON 4 MG/2 ML INJ IV (01:32)
[2020-07-31] MEDS: KETOROLAC 30 MG/ML VIAL IV (01:32)
[2020-07-31] MEDS: MAGNESIUM CITRATE 300 ML SOLUTION PO (01:34)
[2020-07-31] MEDS: METOCLOPRAMIDE HCL 10 MG TABLET PO (02:12)
[2020-07-31] MEDS: diphenhydrAMINE 50 MG/ML VIAL 25 MG IV (02:34)
[2020-07-31] MEDS: METOCLOPRAMIDE 10 MG/2 ML INJ IV (02:34)
--- NOTE | 2020-07-31 02:38 | PC.NURSE ---
Upon discharging, pt started vomitting due to movement. Persisted to vomit and dry heave. Brought back into room to give IV nausea meds and let her rest for a bit more
[2020-07-31] MEDS: PANTOPRAZOLE 40 MG VIAL IV (02:42)
== END 2020-07-31 06:01 | disposition home or self-care (01) ==
PROVIDERS: Emergency Provider Emergency Medicine; PCP Family Medicine
DX: K59.00 Constipation, unspecified (principal); C78.7 Secondary malignant neoplasm of liver and intrahepatic bile duct
CPT/HCPCS: 36415; 74177; 80053; 83690; 85025; 85610; 85730; 96374; 96375; 96376; 99284; C9113; J1170; J1200; J1885; J2405; J2765; Q9967

== ENCOUNTER 2020-08-25 07:58 | Emergency (ER) | payer MEDICARE, OTHER, SELFPAY ==
[2020-08-25 08:12] VITALS: BP 143/65; PULSE 71; RESP 18; TEMP 36.7; O2SAT 100; BMI 18.1
--- NOTE | 2020-08-25 08:31 | DI.RAD.S_ITS ---
PROCEDURE: XR WRIST LT MIN 3V INDICATIONS: fall, wrist pain TECHNIQUE: 4 views of the wrist were acquired. COMPARISON: [facility], CR, XR WRIST 3+ VIEWS LEFT, 04/27/2019, 9:23. FINDINGS: Bones: No fractures or dislocations. No suspicious bony lesions. Scaphoid view: No scaphoid fracture Soft tissues: No suspicious soft tissue calcifications. Unchanged calcification posterior to the piece of 4/lunate, unchanged compared to 2019. IMPRESSION: No visualized acute fracture or dislocation. However, if clinical concern and/or pain persist, short interval imaging followup in 7-10 days is recommended, as occult injury cannot be definitively excluded. Dictated by: Adriane Foley M.D. on 08/25/2020 at 9:09 Approved by: Adriane Foley M.D. on 08/25/2020 at 9:16
--- NOTE | 2020-08-25 08:31 | DI.CT.S_ITS ---
PROCEDURE: CT HEAD/BRAIN WO CON INDICATIONS: head injury TECHNIQUE: Noncontrast 4.5 mm thick angled axial sections acquired from the foramen magnum to the vertex, with coronal and sagittal reformats. For radiation dose reduction, the following was used: automated exposure control, adjustment of mA and/or kV according to patient size. COMPARISON: None. FINDINGS: Image quality: Excellent. CSF spaces: Basal cisterns are patent. No extra-axial fluid collections. The ventricles are symmetric in size and shape. Brain: No intracranial bleeds or masses. There is cerebral volume loss for age, with resultant ventricular and sulcal prominence. There are periventricular and deep white matter chronic small vessel ischemic changes. There is intracranial internal carotid artery atherosclerosis. Skull and face: Calvarium and visualized facial bones appear intact, without suspicious lesions. Sinuses: Visualized sinuses and mastoids are clear. IMPRESSION: 1. No acute intracranial process. 2. Moderate atrophy and chronic microvascular ischemic changes. Dictated by: Adriane Foley M.D. on 08/25/2020 at 8:54 Approved by: Adriane Foley M.D. on 08/25/2020 at 8:56
--- NOTE | 2020-08-25 09:09 | ED.FALL ---
HPI - Fall General Chief Complaint: Fall Stated Complaint: fall, hit left side of head Time Seen by Provider: 08/25/20 08:19 Source: patient and family () Mode of arrival: Family Vehicle Limitations: no limitations History of Present Illness HPI Narrative: This is a pleasant 69-year-old female comes emergency department after having a ground level fall. Patient states her CT tripped her up and she fell hitting the left side of her head and also has some pain in her left wrist. Patient denies any loss of consciousness. She denies any confusion. Her states she is at her baseline mental status. He states she did hit her head quite hard he was able here from 3 rooms away. Patient denies any dizziness, no vision changes, no difficulty speech. No numbness, tingling or weakness in her extremities. She denies any neck or back pain. She has any chest pain, shortness of breath. She has chronic nausea take Zofran daily secondary to chemotherapy. Patient has not any other new GI or urinary symptoms. She does complain of pain in her left wrist but has decent movement. She denies any numbness, tingling or weakness. Patient denies any blood thinners although her EMR does have aspirin included. Related Data Home Medications Medication Instructions Recorded Confirmed ASPIRIN (#ASPIRIN) 81 mg PO Q DAY #0 03/19/11 07/06/20 carbamazepine 200 mg PO BID #0 03/19/11 07/06/20 ASCORBIC ACID (VITAMIN C 1,000 mg PO Q DAY #0 11/22/11 07/06/20 (CHEWABLE)) CA PANTOTHENATE/FOLIC ACID/VIT 1 tab PO Q DAY #0 11/22/11 07/06/20 (MULTIVITAMIN) Pseudoephedrine Hydrochlorid 60 mg PO PRN #0 11/22/11 07/06/20 (#SUDAFED) docusate sodium 100 mg PO BID #0 02/19/16 07/06/20 ginkgo biloba 120 mg PO DAILY #0 02/19/16 07/06/20 lysine HCl 500 mg PO DAILY #0 02/19/16 07/06/20 melatonin 5 mg PO BEDTIME #0 02/19/16 07/06/20 mometasone 1 julien TOPICAL DAILY PRN #0 02/19/16 07/06/20 Probiotic 20,000 mmu cells PO DAILY 07/06/20 07/06/20 calcium carbonate-vitamin D2 1 tab PO DAILY 07/06/20 07/06/20 flaxseed oil 1,400 mg PO BID 07/06/20 07/06/20 krill oil 500 mg PO BID 07/06/20 07/06/20 selenium 200 mcg PO DAILY 07/06/20 07/06/20 Previous Rx's Medication Instructions Recorded ondansetron 4 mg PO Q6H PRN #20 tab 05/31/19 estradiol 10 mcg vaginal tablet See Rx Instructions .ROUTE 06/09/20 .COMPLEX #36 tablet oxycodone 5 mg PO QID PRN #20 tab 06/20/20 Allergies Allergy/AdvReac Type Severity Reaction Status Date / Time neomycin Allergy Unknown Itches and Verified 08/25/20 08:12 hurts, little blisters cat dander Allergy ITCHING Verified 08/25/20 08:12 morphine AdvReac Unknown SEVERE Verified 08/25/20 08:12 NAUSEA/VOMITING Review of Systems Review of Systems ROS Unobtainable: All systems reviewed & are unremarkable except as noted in HPI and below Patient History Medical History Metastasis to liver with unknown primary site Surgical History History of total mastectomy Status post laparoscopic cholecystectomy Status post myringotomy with insertion of tube Status post tubal ligation Status post vaginal hysterectomy Social History household members: spouse Smoking Status: Never smoker Smoking Status: Never smoker alcohol intake frequency: other Substance Use Type: does not use Exam Narrative Exam Narrative: GEN: Patient appears in mild distress. HEAD: No evidence of trauma, no raccoon/Haro sign. NECK: Nontender, painless range of motion, trachea midline Negative for Nexus criteria, there is no mid line tenderness, distracting injury, altered mental status, neuro deficit, recent EtOH. EYES: PERRLA, EOMI ENT: External inspection normal, trachea is midline, no dental or oral injury, airway is normal and with normal occlusion, No bony tenderness RESP: Chest is nontender and has symmetric movement, no ecchymosis, breath sounds are normal no crackles, wheezes or rales CVS: Heart sounds are normal, no murmur noted, No JVD. ABG/GI: Nontender, soft, normal bowel sounds, no distention, no organomegaly, pelvic rock is negative NEURO: Oriented AOx3, neuro is grossly intact, sensation and motor is normal all 4 extremities moving, cranial nerves II through XII are intact, GCS is 15 PSYCH: Normal mood and affect SKIN: Intact, warm and dry, no crepitus and without decubitus BACK: No CVA tenderness, no vertebral tenderness, no step-off's, no crepitus EXT: Patient has some mild tenderness over the left wrist particularly over the distal radius, no deformity, full range of motion. Patient has 2+ radial pulse. No warmth, erythema or ecchymosis, hips are nontender, no pedal edema, normal color and temperature, normal range of motion of extremities with normal tendon exam, 2+ pulses in all four extremities Initial Vital Signs Initial Vital Signs: Vital Signs Temperature 98.1 F 08/25/20 08:12 Pulse Rate 71 08/25/20 08:12 Respiratory Rate 18 08/25/20 08:12 Blood Pressure 143/65 H 08/25/20 08:12 Pulse Oximetry 100 08/25/20 08:12 Scores GCS [place] coma scale eye opening: Spontaneous Ángel coma scale verbal response: Orientated Ángel coma scale motor response: Obey commands Ángel coma scale total score: 15 Course Orders Ordered: ED Orders 08/25/20 08:31 CT head/brain wo con Stat XR wrist LT min 3V Stat Vital Signs Vital signs: Vital Signs - 8 hr 08/25/20 08:12 Temperature 98.1 F Pulse Rate 71 Respiratory Rate 18 Blood Pressure 143/65 H Pulse Oximetry 100 MDM - Fall Imaging Data CT scan - head: Radiologist's Impression: [address] [id number] Scan ReportSigned Patient: Nikole Flaherty LMR#: [id number]: 9Acct:[id number]/Sex: 69 / FDate of Service: 08/25/20Loc: EDAccession Number: [id number] Procedure: CT head/brain wo con Ordering Provider: Radha Bullard D.O. PROCEDURE: CT HEAD/BRAIN WO CON INDICATIONS: head injury TECHNIQUE: Noncontrast 4.5 mm thick angled axial sections acquired from the foramen magnum to the vertex, with coronal and sagittal reformats. For radiation dose reduction, the following was used: automated exposure control, adjustment of mA and/or kV according to patient size. COMPARISON: None. FINDINGS: Image quality: Excellent. CSF spaces: Basal cisterns are patent. No extra-axial fluid collections. The ventricles are symmetric in size and shape. Brain: No intracranial bleeds or masses. There is cerebral volume loss for age, with resultant ventricular and sulcal prominence. There are periventricular and deep white matter chronic small vessel ischemic changes. There is intracranial internal carotid artery atherosclerosis. Skull and face: Calvarium and visualized facial bones appear intact, without suspicious lesions. Sinuses: Visualized sinuses and mastoids are clear. IMPRESSION: 1. No acute intracranial process. 2. Moderate atrophy and chronic microvascular ischemic changes. Dictated by: Adriane Foley M.D. on 08/25/2020 at 8:54 Approved by: Adriane Foley M.D. on 08/25/2020 at 8:56 Extremity x-ray #1: Radiologist's Impression: [address] [id number] ReportSigned Patient: Nikole Flaherty LMR#: [id number]: [id number]:[id number]/Sex: 69 / FDate of Service: 08/25/20Loc: EDAccession Number: [id number] Procedure: XR wrist LT min 3V Ordering Provider: Radha Bullard D.O. PROCEDURE: XR WRIST LT MIN 3V INDICATIONS: fall, wrist pain TECHNIQUE: 4 views of the wrist were acquired. COMPARISON: [facility] [place], [place], XR WRIST 3+ VIEWS LEFT, 04/27/2019, 9:23. FINDINGS: Bones: No fractures or dislocations. No suspicious bony lesions. Scaphoid view: No scaphoid fracture Soft tissues: No suspicious soft tissue calcifications. Unchanged calcification posterior to the piece of 4/lunate, unchanged compared to 2019. IMPRESSION: No visualized acute fracture or dislocation. However, if clinical concern and/or pain persist, short interval imaging followup in 7-10 days is recommended, as occult injury cannot be definitively excluded. Dictated by: Adriane Foley M.D. on 08/25/2020 at 9:09 Approved by: Adriane Foley M.D. on 08/25/2020 at 9:16 MDM Narrative Medical decision making narrative: Is a 69-year-old female who had a ground level fall. Based on age and daily aspirin CT head was included. Patient has a left wrist discomfort with some mild discomfort exam. X-ray is negative and patient has fairly normal range of motion so was not placed in a splint. Return precautions were discussed. Plan for follow-up. Patient has pain medication at home she can take daily and that she normally takes every 6 hours. All questions were answered. Discharge Plan Departure Patient Disposition: Home Clinical Impression: Fall from ground level, Acute pain of left wrist, Injury of wrist Head injury Qualifiers: Encounter type: initial encounter Qualified Code(s): S09.90XA - Unspecified injury of head, initial encounter Activity Restrictions/Additional Instructions: Follow-up with your physician in the next 3-5 days for recheck if symptoms have not resolved. You may continue home pain medications as needed. Please return for fevers, altered mental status, severe headaches, new vision changes, dizziness or passing out, persistent vomiting, black or bloody stools, weakness, numbness or tingling other new or concerning symptoms. Prescriptions: No Action carbamazepine 200 MG tablet 200 mg PO BID Qty: 0 RF: 0 ASPIRIN (#ASPIRIN) 81 mg PO Q DAY Qty: 0 RF: 0 Pseudoephedrine Hydrochlorid (#SUDAFED) 60 mg PO PRN Qty: 0 RF: 0 ASCORBIC ACID (VITAMIN C (CHEWABLE)) 1,000 mg PO Q DAY Qty: 0 RF: 0 CA PANTOTHENATE/FOLIC ACID/VIT (MULTIVITAMIN) 1 tab PO Q DAY Qty: 0 RF: 0 docusate sodium 100 MG capsule 100 mg PO BID Qty: 0 RF: 0 ginkgo biloba 120 MG tablet 120 mg PO DAILY Qty: 0 RF: 0 melatonin 5 MG tablet 5 mg PO BEDTIME Qty: 0 RF: 0 lysine HCl 500 MG tablet 500 mg PO DAILY Qty: 0 RF: 0 mometasone 0.1 % solution 1 julien Topical DAILY PRN (Reason: Itching) Qty: 0 RF: 0 estradiol [Yuvafem] 10 mcg tablet See Rx Instructions .ROUTE .COMPLEX Qty: 36 RF: 0 oxycodone 5 mg tablet 5 mg PO QID PRN (Reason: pain) Qty: 20 RF: 0 ondansetron 4 mg tablet,disintegrating 4 mg PO Q6H PRN (Reason: nausea and vomiting) Qty: 20 RF: 0 krill oil 500 mg Capsule 500 mg PO BID RF: 0 calcium carbonate-vitamin D2 600 mg calcium- 200 unit Tablet 1 tab PO DAILY RF: 0 flaxseed oil 1,030 mg Capsule 1,400 mg PO BID RF: 0 selenium 200 mcg Capsule 200 mcg PO DAILY RF: 0 Probiotic 20 billion cell Capsule 20,000 mmu cells PO DAILY RF: 0 Referrals: Tom Tse DO [Primary Care Provider] -
[2020-08-25 09:58] VITALS: BP 132/65; PULSE 70; O2SAT 100
== END 2020-08-25 09:58 | disposition home or self-care (01) ==
PROVIDERS: Emergency Provider Emergency Medicine; PCP Family Medicine
DX: S09.90XA Unspecified injury of head, initial encounter (principal); M25.532 Pain in left wrist; R11.0 Nausea; W19.XXXA Unspecified fall, initial encounter
CPT/HCPCS: 70450; 73110; 99284

== ENCOUNTER 2020-11-14 06:58 | Observation (INO) | payer MEDICARE, OTHER, SELFPAY ==
[2020-11-14] VITALS (19 sets, daily range): BP systolic 107–158; BP diastolic 66–90; PULSE 71–94; RESP 14–26; TEMP 36.3–37.1; O2SAT 93–99; BMI 18.9
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
--- NOTE | 2020-11-14 07:34 | DI.CT.S_ITS ---
PROCEDURE: CT ABDOMEN PELVIS W CON INDICATIONS: RUQ pain, sudden increase. known mets liver from ca. TECHNIQUE: After the administration of intravenous contrast, axial sections acquired from the lung bases to the pubic symphysis. Coronal and sagittal reformats were performed. For radiation dose reduction, the following was used: automated exposure control, adjustment of mA and/or kV according to patient size. COMPARISON: [facility], CT, CT CHEST ABDOMEN PELVIS WITH CONTRAST, 10/10/2020, 11:58. [facility], CT, CT ABDOMEN PELVIS W CON, 07/30/2020, 23:24. FINDINGS: Image quality: Excellent. Lung bases: Very minimal right pleural effusion. Minimal right basilar atelectasis. Heart: No significant findings. ABDOMEN: Liver: Extensive hepatic metastatic disease. The previously measured public health representative mass in segment 7 is unchanged, previously measuring 5.3 x 5.1 cm and currently measuring 5.3 x 5.2 cm. There are lesions which have increased in size. However, subcapsular fluid as developed posterior to this lesion with a Hounsfield measurement of 38, suggesting subcapsular hemorrhage. This is a thin crescentic collection of subcapsular fluid. Reference image 17/2. There has been some interval progression of liver metastatic disease. A public health representative image which demonstrates progression compare is previous image 68/2 and current image 40/2. On the slice, a lateral posterior right lobe liver lesion previously measured 1.2 cm in currently measures 2.5 cm. On this image, posterior medially, there is evidence of a lesion which has increased in size, and was previously seen will only on the next superior image. Gallbladder: Surgically absent Biliary ducts: Stable dilatation post cholecystectomy.. Pancreas: Unremarkable. Spleen: Unremarkable. Adrenal Glands: Unremarkable. Kidneys and Ureters: Unremarkable. Stomach and Bowel: Stomach, small bowel loops, and colon are unremarkable. Large fecal load. Peritoneum: No abnormal intraperitoneal fluid. No free air. Ventral Wall: No hernias. Abdominal Nodes: No retroperitoneal or mesenteric adenopathy by size criteria. Stable mildly prominent aortocaval lymph node on current image 44/2. Vessels: Aorta and inferior vena cava are normal in size. PELVIS: Pelvic Organs: Unremarkable. Bladder: Unremarkable. Pelvic Nodes: No enlarged lymph nodes. Miscellaneous: No hernias are seen. Bones: No lytic or blastic bony lesions identified. IMPRESSION: 1. Slight interval progression of extensive hepatic malignancy. 2. The previously measured public health representative low-density lesion in segment segment is unchanged in size. However, immediately subjacent to this lesion, there is accumulation of subcapsular fluid suggesting a small amount of interval subcapsular hemorrhage related to the lesion. Dictated by: Fred Rocha M.D. on 11/14/2020 at 9:06 Approved by: Fred Rocha M.D. on 11/14/2020 at 9:23
[2020-11-14 07:46] LABS: Appearance Urine UA CLEAR; Bilirubin Urine UA NEGATIVE (NEGATIVE); Color Urine UA YELLOW; Glucose Urine UA NEGATIVE (Negative); Ketones Urine UA NEGATIVE (NEGATIVE); Leukocyte Esterase Urine UA NEGATIVE (NEGATIVE); Nitrite Urine UA NEGATIVE (Negative); Occult Blood Urine UA NEGATIVE (Negative); Protein Urine UA 1+ (Negative); Specific Gravity Urine UA 1.025 (1.000-1.035); Urobilinogen Urine UA 0.2 E.U./dL (0.2)
[2020-11-14] MEDS: ONDANSETRON 4 MG/2 ML INJ IV ×2 (07:57→14:19)
[2020-11-14] MEDS: SODIUM CHLORIDE 0.9% 1,000 ML 150 ML IV ×3 (07:57→19:32)
[2020-11-14] MEDS: HYDROMORPHONE 0.5 MG INJ IV ×4 (07:57→17:28)
[2020-11-14 08:10] LABS: Squamous Epithelial Cell Urine 5-10 /HPF (0-5/HPF); WBC Urine 5-10/HPF (0-5/HPF)
[2020-11-14 08:11] LABS: Culture Indicated Urine Cult Not Indicated; Mucus Urine 1+ (Negative); Renal Epithelial Cells Urine 1-5/HPF (0-1/HPF); Transitional Epi Cells Urine 5-10/HPF (0-5/HPF)
[2020-11-14 08:16] LABS: INR 1.1 (0.9-1.3); Prothrombin Time 12.4 SECONDS (10.1-12.7)
[2020-11-14 08:18] LABS: PTT Partial Thromboplastin Tim 45 SECONDS (26.4-36.2)
[2020-11-14 08:20] LABS: Alanine Aminotransferase 59 IU/L (<35); Albumin Globulin Ratio 1.2 (1.0-2.8); Alkaline Phosphatase 211 U/L (38-126); Aspartate Aminotransferase 102 IU/L (14-36); BUN Creatinine Ratio 35.5 (6-22); Bilirubin Total 0.5 mg/dL (0.2-1.3); Blood Urea Nitrogen 11 mg/dL (7-17); Carbon Dioxide 23 mmol/L (22-32); Chloride 105 mmol/L (98-107); Estimated Glomerular Filt Rate > 60.0 mL/min (>60); Globulin 3.3 g/dL (1.7-4.1); Glucose 107 mg/dL (80-110); HEMOLYSIS < 15 (0-50); Lipase 271 U/L (23-300); Potassium 3.8 mmol/L (3.4-5.1); Sodium 134 mmol/L (137-145); Total Protein 7.3 g/dL (6.3-8.2)
[2020-11-14 08:21] LABS: Add Manual Diff / Slide Review NO; Basophils Absolute Auto 0 /uL (0-100); Basophils Percent Auto 0.3 % (0-2); Eosinophils Absolute Auto 0 /uL (0-450); Eosinophils Percent Auto 0.4 % (2-4); Hematocrit 39.6 % (36-46); Hemoglobin 13.3 g/dL (12.0-16.0); Lymphocytes Absolute Auto 900 /uL (1100-4500); Lymphocytes Percent Auto 11.7 % (25-40); Mean Corpuscular HGB Conc 33.5 % (30-36); Mean Corpuscular Hemoglobin 33.8 PG (26-34); Mean Corpuscular Volume 100.9 fL (80-100); Monocytes Absolute Auto 500 /uL (0-900); Monocytes Percent Auto 7.4 % (3-14); Neutrophils Absolute Auto 5900 /uL (1500-7000); Neutrophils Percent Auto 80.2 % (50-75); Platelet Count 189 X10^3/uL (150-400); Red Blood Cell Count 3.93 X10^6/uL (4.0-5.2); Red Cell Distribution Width 16.4 % (11.6-14.8); White Blood Cell Count 7.4 X10^3/uL (4.5-11.0)
[2020-11-14 12:45] LABS: COVID19 - ADMIT (NP swab/PCR) Negative (Negative)
--- NOTE | 2020-11-14 13:11 | PC.ADMIT ---
[id number] Admission Note: The patient,Nikole Flaherty,70 y/o, was given written information regarding hospital policies, unit procedures and contact persons. Patient's smoking status: Former smoker. Vital Signs - 8 hr 11/14/20 07:36 11/14/20 08:17 11/14/20 08:30 Temperature 97.5 F L Pulse Rate 90 94 H 83 Respiratory Rate 20 17 17 Blood Pressure 151/90 H 151/90 H Pulse Oximetry 98 94 94 11/14/20 08:44 11/14/20 09:03 11/14/20 09:04 Temperature Pulse Rate 86 81 82 Respiratory Rate 26 H 26 H Blood Pressure 128/82 158/80 H Pulse Oximetry 94 95 98 11/14/20 09:30 11/14/20 10:00 11/14/20 10:15 Temperature Pulse Rate 80 82 87 Respiratory Rate 14 24 23 Blood Pressure 111/66 118/77 117/74 Pulse Oximetry 93 93 95 11/14/20 10:30 11/14/20 11:00 11/14/20 11:30 Temperature Pulse Rate 78 74 77 Respiratory Rate 17 24 Blood Pressure 117/74 118/73 111/70 Pulse Oximetry 95 96 96 11/14/20 12:00 Temperature Pulse Rate 77 Respiratory Rate 23 Blood Pressure 107/69 Pulse Oximetry 97 Patient arrived to room 209 at 1225, accompanied by her spouse. Patient oriented to room and floor. Updated patient and spouse on current orders. Patient and spouse verbalized understanding. Denied any other needs or questions at this time, call light within reach.
--- NOTE | 2020-11-14 13:30 | PM.HP.1 ---
History of Present Illness History of Present Illness Date Patient Seen: 11/14/20 Time Patient Seen: 13:00 Date of Onset of Symptoms: 11/14/20 Chief complaint: pain/cramping in URQ of abdomen Narrative: Patient 70-year-old female with history of metastatic colon cancer undergoing chemotherapy, remote history of breast cancer, presents with complaint of acute right upper quadrant abdominal pain. Patient has chronic abdominal pain secondary to liver metastases. However, this morning she got woken up from sleep due to acute right upper quadrant pain which she describes as severe. She had nausea without vomiting. CT scan showed subcapsular bleed in area of stable 5.3 x 5.1 cm metastatic lesion. Patient had pain relief with IV Dilaudid in ED. ER physician discussed case with Dr. Osorio who is on-call for surgery who recommended patient be admitted for overnight observation. Patient does take a daily 81 mg aspirin but has no history of coronary disease, CVA or venous thrombosis. Patient History Medical History Metastasis to liver with unknown primary site Surgical History History of total mastectomy Status post laparoscopic cholecystectomy Status post myringotomy with insertion of tube Status post tubal ligation Status post vaginal hysterectomy Family & Social History Social History: household members spouse Safety & Behavioral: Feels Safe in Current Yes Environment Been Physically Hurt or No Threatened By a Person Suicidal Ideation Description None Suicide Plan Description No Plan Tobacco & Substance use: Smoking Status Former smoker alcohol intake former alcohol intake frequency other Substance Use Type does not use Meds Home Medications and Allergies Home Medications Medication Instructions Recorded Confirmed Type ASPIRIN (#ASPIRIN) 81 mg PO Q DAY #0 03/19/11 07/06/20 History carbamazepine 200 mg tablet 200 mg PO BID #0 03/19/11 07/06/20 History ASCORBIC ACID (VITAMIN C 1,000 mg PO Q DAY #0 11/22/11 07/06/20 History (CHEWABLE)) CA PANTOTHENATE/FOLIC ACID/VIT 1 tab PO Q DAY #0 11/22/11 07/06/20 History (MULTIVITAMIN) Pseudoephedrine Hydrochlorid 60 mg PO PRN #0 11/22/11 07/06/20 History (#SUDAFED) docusate sodium 100 mg capsule 100 mg PO BID #0 02/19/16 07/06/20 History ginkgo biloba 120 mg tablet 120 mg PO DAILY #0 02/19/16 07/06/20 History lysine HCl 500 mg tablet 500 mg PO DAILY #0 02/19/16 07/06/20 History melatonin 5 mg tablet 5 mg PO BEDTIME #0 02/19/16 07/06/20 History mometasone 0.1 % topical solution 1 julien TOPICAL DAILY PRN #0 02/19/16 07/06/20 History ondansetron 4 mg disintegrating 4 mg PO Q6H PRN #20 tab 05/31/19 07/06/20 Rx tablet estradiol 10 mcg vaginal tablet See Rx Instructions .ROUTE 06/09/20 07/06/20 Rx (Yuvafem) .COMPLEX #36 tablet oxycodone 5 mg tablet 5 mg PO QID PRN #20 tab 06/20/20 07/06/20 Rx calcium carb-ergocalciferol (vit 1 tab PO DAILY 07/06/20 07/06/20 History D2) 600 mg calcium-200 unit tablet flaxseed oil 1,030 mg capsule 1,400 mg PO BID 07/06/20 07/06/20 History krill oil 500 mg capsule 500 mg PO BID 07/06/20 07/06/20 History lactobacillus comb no.10 20 20,000 mmu cells PO DAILY 07/06/20 07/06/20 History billion cell capsule (Probiotic) selenium 200 mcg capsule 200 mcg PO DAILY 07/06/20 07/06/20 History Allergies Allergy/AdvReac Type Severity Reaction Status Date / Time neomycin Allergy Unknown Itches and Verified 08/25/20 08:12 hurts, little blisters cat dander Allergy ITCHING Verified 08/25/20 08:12 morphine AdvReac Unknown SEVERE Verified 08/25/20 08:12 NAUSEA/VOMITING Review of Systems Review of Systems Narrative: No fevers, chills, cough, dyspnea, chest pain, dysuria. She has chronic constipation for which she takes lactulose. Exam Vital Signs (past 8 hours): - 11/14/20 07:36 11/14/20 08:17 11/14/20 08:30 Temperature 97.5 F L Pulse Rate 90 94 H 83 Respiratory Rate 20 17 17 Blood Pressure 151/90 H 151/90 H Pulse Oximetry 98 94 94 11/14/20 08:44 11/14/20 09:03 11/14/20 09:04 Temperature Pulse Rate 86 81 82 Respiratory Rate 26 H 26 H Blood Pressure 128/82 158/80 H Pulse Oximetry 94 95 98 11/14/20 09:30 11/14/20 10:00 11/14/20 10:15 Temperature Pulse Rate 80 82 87 Respiratory Rate 14 24 23 Blood Pressure 111/66 118/77 117/74 Pulse Oximetry 93 93 95 11/14/20 10:30 11/14/20 11:00 11/14/20 11:30 Temperature Pulse Rate 78 74 77 Respiratory Rate 17 24 Blood Pressure 117/74 118/73 111/70 Pulse Oximetry 95 96 96 11/14/20 12:00 Temperature Pulse Rate 77 Respiratory Rate 23 Blood Pressure 107/69 Pulse Oximetry 97 Oxygen Delivery Method Room Air Narrative Exam Narrative: General: Alert very pleasant female in mild distress HEENT: Anicteric, pupils equal, oropharynx without lesion Neck: No lymphadenopathy Lungs: Clear to auscultation Heart: Regular rhythm, no murmur Abdomen: Nondistended, tender in the right upper quadrant towards midline, no abdominal masses or HSM Extremities: No edema Neurological oriented, affect normal, speech normal, no focal weakness Objective Labs Result Diagrams: 11/14/20 07:50 11/14/20 07:50 Labs: Laboratory Results - last 24 hr 11/14/20 11/14/20 11/14/20 07:40 07:50 07:50 WBC 7.4 RBC 3.93 L Hgb 13.3 Hct 39.6 MCV 100.9 H MCH 33.8 MCHC 33.5 RDW 16.4 H Plt Count 189 Neut % (Auto) 80.2 H Lymph % (Auto) 11.7 L [place] % (Auto) 7.4 Eos % (Auto) 0.4 L Baso % (Auto) 0.3 Neut # (Auto) 5900 Lymph # (Auto) 900 L [place] # (Auto) 500 Eos # (Auto) 0 Baso # (Auto) 0 PT 12.4 INR 1.1 APTT 45 H Sodium Potassium Chloride Carbon Dioxide BUN Creatinine Estimated GFR BUN/Creatinine Ratio Glucose Calcium Total Bilirubin AST ALT Alkaline Phosphatase Total Protein Albumin Globulin Albumin/Globulin Ratio Lipase Urine Color Yellow Urine Appearance Clear Urine pH 6.0 Ur Specific [place] 1.025 Urine Protein 1+ H Urine Glucose (UA) Negative Urine Ketones Negative Urine Occult Blood Negative Urine Nitrate Negative Urine Bilirubin Negative Urine Urobilinogen 0.2 Ur Leukocyte Esterase Negative Urine RBC Not Reportable Urine WBC 5-10/hpf H Ur Squamous Epith Cells 5-10 /hpf H Ur Transition Epith Cell 5-10/hpf H Ur Renal Epithelial Cell 1-5/hpf H Urine Bacteria Not Reportable Urine Mucus 1+ H Ur Culture Indicated? Cult not indicated SARS-CoV-2 (PCR) Blood Type Antibody Screen 11/14/20 11/14/20 11/14/20 07:50 10:15 10:15 WBC RBC Hgb Hct MCV MCH MCHC RDW Plt Count Neut % (Auto) Lymph % (Auto) [place] % (Auto) Eos % (Auto) Baso % (Auto) Neut # (Auto) Lymph # (Auto) [place] # (Auto) Eos # (Auto) Baso # (Auto) PT INR APTT Sodium 134 L Potassium 3.8 Chloride 105 Carbon Dioxide 23 BUN 11 Creatinine 0.31 L Estimated GFR > 60.0 BUN/Creatinine Ratio 35.5 H Glucose 107 Calcium 9.0 Total Bilirubin 0.5 AST 102 H ALT 59 H Alkaline Phosphatase 211 H Total Protein 7.3 Albumin 4.0 Globulin 3.3 Albumin/Globulin Ratio 1.2 Lipase 271 Urine Color Urine Appearance Urine pH Ur Specific [place] Urine Protein Urine Glucose (UA) Urine Ketones Urine Occult Blood Urine Nitrate Urine Bilirubin Urine Urobilinogen Ur Leukocyte Esterase Urine RBC Urine WBC Ur Squamous Epith Cells Ur Transition Epith Cell Ur Renal Epithelial Cell Urine Bacteria Urine Mucus Ur Culture Indicated? SARS-CoV-2 (PCR) Negative Blood Type B Positive Antibody Screen Negative Assessment & Plan Assessment & Plan narrative: 1. Acute subcapsular bleed secondary to liver metastasis -this is a small area of hemorrhage with stable H&H but patient needs overnight observation to monitor stability and for pain control -discontinued aspirin -hydromorphone 0.5 mg IV q.4 hours as needed -continue patient on her routine Dilaudid oxycodone 5 mg q.6 hours with ondansetron 4 mg q.6 hours which she takes at home -NPO except meds -consult surgery if patient acutely decompensates Code status full code DVT prophylaxis: SCDs, Lovenox contraindicated due to bleed Time Spent With Patient Critical Care time: I spent a total of [] minutes of critical care time on this patient's care today; this time is exclusive of procedural time.
[2020-11-14] MEDS: OXYCODONE IR 5 MG TABLET PO (17:26)
[2020-11-14] MEDS: ONDANSETRON 4 MG ODT PO (17:27)
--- NOTE | 2020-11-14 18:35 | PC.NURSE ---
a/o, pleasant. voices needs. frail SBA for transfers, FWW for balance to BSC. thin fragile skin, barrier cream applied to bilat elbows, offered purple protectors for either elbows or heels. she declined. encouraged to change position frequently. pain well controlled w/ oxycodone, PRN dilauded 0.5mg and zofran. remains NPO, IVF via PIV. Hema visiting at dinnertime. call light w/in reach.
[2020-11-14] MEDS: MELATONIN 3 MG TABLET 6 MG PO (20:19)
[2020-11-14] MEDS: carBAMazepine 200 MG TABLET PO (20:20)
[2020-11-14] MEDS: DOCUSATE 100 MG CAPSULE 300 MG PO (20:20)
[2020-11-15] VITALS (16 sets, daily range): BP systolic 119–158; BP diastolic 74–99; PULSE 70–84; RESP 16–20; TEMP 36.5–36.9; O2SAT 93–97
[2020-11-15] MEDS: OXYCODONE IR 5 MG TABLET PO ×4 (00:35→19:51)
[2020-11-15] MEDS: ONDANSETRON 4 MG ODT PO ×4 (00:35→19:53)
[2020-11-15] MEDS: HYDROMORPHONE 0.5 MG INJ IV ×2 (03:32→23:37)
[2020-11-15 06:37] LABS: Add Manual Diff / Slide Review NO; Basophils Absolute Auto 0 /uL (0-100); Basophils Percent Auto 0.2 % (0-2); Eosinophils Absolute Auto 0 /uL (0-450); Eosinophils Percent Auto 1.1 % (2-4); Hematocrit 31.7 % (36-46); Hemoglobin 10.6 g/dL (12.0-16.0); Lymphocytes Absolute Auto 1100 /uL (1100-4500); Lymphocytes Percent Auto 23.3 % (25-40); Mean Corpuscular HGB Conc 33.5 % (30-36); Mean Corpuscular Hemoglobin 34.1 PG (26-34); Mean Corpuscular Volume 101.6 fL (80-100); Monocytes Absolute Auto 600 /uL (0-900); Monocytes Percent Auto 12.7 % (3-14); Neutrophils Absolute Auto 2900 /uL (1500-7000); Neutrophils Percent Auto 62.7 % (50-75); Platelet Count 131 X10^3/uL (150-400); Red Blood Cell Count 3.12 X10^6/uL (4.0-5.2); Red Cell Distribution Width 16.5 % (11.6-14.8); White Blood Cell Count 4.6 X10^3/uL (4.5-11.0)
--- NOTE | 2020-11-15 09:03 | CM.DANOTE ---
DCP: Case received, EMR reviewed and met with patient. , Mariano, was at bedside. Introduced self and role. Was able to obtain information regarding patient's baseline activity status prior to hospitalization. DCP assessment completed with information currently available. Patient is a 70 year old female who admitted yesterday morning to the care of the hospitalist team. PCP: [employer]. Patient came to the hospital via private vehicle secondary to having increased abdominal pain. Patient has history of metastatic colon cancer, and is undergoing chemo. She holds diagnosis of acute subcapsular bleed secondary to liver metastasis. Met briefly with patient in the room. She is alert and oriented, resides here in [place] with her spouse, Hema. She still drives, and is independent with her mobility. Conformed with her that Tom Tse is her primary care provider. concerned about her going home with this kind of pain. Encouraged her to address this with the hospitalist today. P: DCP to continue to follow, and will be available for any resources needed. Imelda Feng RN/[employer]
[2020-11-15] MEDS: carBAMazepine 200 MG TABLET PO ×2 (09:22→20:00)
[2020-11-15] MEDS: DOCUSATE 100 MG CAPSULE 300 MG PO ×2 (09:23→20:00)
[2020-11-15] MEDS: dexAMETHasone 4 MG TABLET PO (09:23)
[2020-11-15] MEDS: LACTULOSE 20 GM/30 ML SOLUTION 30 GM PO (09:23)
[2020-11-15] MEDS: LORATADINE 10 MG TABLET PO (09:24)
--- NOTE | 2020-11-15 15:33 | P.PN_ITS ---
Subjective Subjective Interval history: 70-year-old female with liver metastases presumed from colon cancer undergoing chemotherapy presented with acute RUQ pain secondary to subcapsular bleed seen on CT. Patient states her pain is better although she still is having increased pain in the right upper abdomen from her normal baseline. No nausea or vomiting. Pain is relieved with subcu Dilaudid. Her hemoglobin did drop significantly from yesterday although this seems a result of IV hydration rather than acute blood loss. Exam Vital Signs (past 8 hours): - 11/15/20 08:33 11/15/20 11:16 11/15/20 12:32 Temperature 98.4 F 97.8 F Pulse Rate 72 74 Respiratory Rate 16 16 Blood Pressure 123/74 138/83 Pulse Oximetry 95 95 11/15/20 13:06 Temperature Pulse Rate Respiratory Rate Blood Pressure Pulse Oximetry 96 Oxygen Delivery Method Room Air Oxygen Flow Rate 0 Narrative Exam Narrative: General: Alert, NAD Abdomen: Tender RUQ Objective Labs Result Diagrams: 11/15/20 05:50 11/14/20 07:50 Labs: Laboratory Results - last 24 hr 11/15/20 05:50 WBC 4.6 RBC 3.12 L Hgb 10.6 L Hct 31.7 L MCV 101.6 H MCH 34.1 H MCHC 33.5 RDW 16.5 H Plt Count 131 L Neut % (Auto) 62.7 Lymph % (Auto) 23.3 L [place] % (Auto) 12.7 Eos % (Auto) 1.1 L Baso % (Auto) 0.2 Neut # (Auto) 2900 Lymph # (Auto) 1100 [place] # (Auto) 600 Eos # (Auto) 0 Baso # (Auto) 0 PFSH Medical History Metastasis to liver with unknown primary site Surgical History History of total mastectomy Status post laparoscopic cholecystectomy Status post myringotomy with insertion of tube Status post tubal ligation Status post vaginal hysterectomy Social History household members: spouse Smoking Status: Former smoker alcohol intake: former Assessment & Plan Assessment & Plan narrative: 1. Acute subcapsular bleed secondary to liver metastasis -this is a small area of subcapsular bleed on CT in area of metastatic lesion -discontinued aspirin -hydromorphone 0.5 mg IV q.4 hours as needed -continue patient on home routine of oxycodone 5 mg q.6 hours with ondansetron 4 mg q.6 hours -general diet -consult surgery if patient acutely decompensates -discharge home tomorrow if medically stable -discussed with patient we can discharge on oral dilaudid which she can take for breakthrough pain in addition to her routine oxycodone -patient has oncology follow-up appointment next week with Dr. Glez 2. Acute dehydration -treated with IV fluids -Hep-Lock IV 3. Chronic anemia due to cancer -she had acute drop in hemoglobin after IV hydration but was definitely hemoconcentrated on admission labs -she is chronically anemic due to cancer diagnosis and post hydration lab values are at expected baseline -repeat CBC in a.m. Code status full code DVT prophylaxis:? SCDs, Lovenox contraindicated due to bleed Time Spent With Patient Critical Care time: I spent a total of [] minutes of critical care time on this patient's care today; this time is exclusive of procedural time.
[2020-11-15] MEDS: MELATONIN 3 MG TABLET 6 MG PO (20:00)
[2020-11-15] MEDS: SODIUM CHLORIDE 0.9% FLUSH 10 ML IV (20:25)
[2020-11-16] MEDS: ONDANSETRON 4 MG ODT PO ×3 (00:38→11:13)
[2020-11-16] MEDS: OXYCODONE IR 5 MG TABLET PO ×3 (00:39→11:13)
[2020-11-16 01:00] VITALS: O2SAT 96
[2020-11-16 05:30] VITALS: BP 115/78; PULSE 74; RESP 18; TEMP 36.6; O2SAT 95
[2020-11-16 06:04] LABS: Add Manual Diff / Slide Review NO; Basophils Absolute Auto 0 /uL (0-100); Basophils Percent Auto 0.3 % (0-2); Eosinophils Absolute Auto 0 /uL (0-450); Eosinophils Percent Auto 0.7 % (2-4); Hematocrit 35.4 % (36-46); Hemoglobin 11.9 g/dL (12.0-16.0); Lymphocytes Absolute Auto 1000 /uL (1100-4500); Mean Corpuscular HGB Conc 33.6 % (30-36); Mean Corpuscular Volume 101.1 fL (80-100); Monocytes Absolute Auto 900 /uL (0-900); Monocytes Percent Auto 14.7 % (3-14); Neutrophils Absolute Auto 4200 /uL (1500-7000); Neutrophils Percent Auto 68.3 % (50-75); Platelet Count 179 X10^3/uL (150-400); Red Cell Distribution Width 16.2 % (11.6-14.8); White Blood Cell Count 6.1 X10^3/uL (4.5-11.0)
[2020-11-16 07:10] VITALS: O2SAT 96
[2020-11-16] MEDS: DOCUSATE 100 MG CAPSULE 300 MG PO (08:31)
[2020-11-16] MEDS: carBAMazepine 200 MG TABLET PO (08:31)
[2020-11-16] MEDS: dexAMETHasone 4 MG TABLET PO (08:31)
[2020-11-16] MEDS: LORATADINE 10 MG TABLET PO (08:31)
[2020-11-16] MEDS: LACTULOSE 20 GM/30 ML SOLUTION 30 GM PO (08:32)
[2020-11-16] MEDS: SODIUM CHLORIDE 0.9% FLUSH 10 ML IV (08:32)
[2020-11-16 09:06] VITALS: BP 96/67; PULSE 80; RESP 18; TEMP 36.1; O2SAT 96
[2020-11-16 12:00] VITALS: O2SAT 95
--- NOTE | 2020-11-16 13:00 | PC.NURSE ---
Pt is dressed and ready for discharge home with Spouse. IV removed. Went over d/c instructions with Pt and spouse-discussed d/c meds, time of last dose, reviewed stroke education, no driving while on narcotics, drink plenty of fluids to prevent constipation or dehydration. Pt has a follow up with her Oncologist. Pt out via w/c by RN to pov with Spouse and all belongings.
--- NOTE | 2020-11-16 14:41 | PM.DS.1 ---
History of Present Illness History of Present Illness Chief complaint: pain/cramping in URQ of abdomen Narrative: Per Dr. Preciado: Patient 70-year-old female with history of metastatic colon cancer undergoing chemotherapy, remote history of breast cancer, presents with complaint of acute right upper quadrant abdominal pain.? Patient has chronic abdominal pain secondary to liver metastases.? However, this morning she got woken up from sleep due to acute right upper quadrant pain which she describes as severe.? She had nausea without vomiting.? CT scan showed subcapsular bleed in area of stable 5.3 x 5.1 cm metastatic lesion.? Patient had pain relief with IV Dilaudid in ED. ER physician discussed case with Dr. Osorio who is on-call for surgery who recommended patient be admitted for overnight observation.? Patient does take a daily 81 mg aspirin but has no history of coronary disease, CVA or venous thrombosis. Discharge Providers Provider Date of admission: 11/14/20 11:00 Discharge Date: 11/16/20 Primary care physician: Tom Tse DO Discharge provider: Dereck Coronel MD Summary Hospital Course Discharge Diagnosis: 1. Acute subcapsular bleed from liver metastasis 2. Chronic anemia Hospital Course: Ms. Flaherty was admitted with abdominal pain. She was found to have a subcapsular bleed that is presumed to originate from her known liver metastasis. Her blood count remained stable in the hospital. She was given additional pain medication due to her significant pain. She had no acute surgical need. Day of discharge she wanted to go home. She has follow up with oncology next week with Dr. Glez. Exam Vital Signs (past 8 hours): - 11/16/20 07:10 11/16/20 09:06 11/16/20 12:00 Temperature 97.0 F L Pulse Rate 80 Respiratory Rate 18 Blood Pressure 96/67 Pulse Oximetry 96 96 95 Oxygen Delivery Method Room Air Oxygen Flow Rate 0 Narrative Exam Narrative: GEN: no acute distress ABD: tender in right upper quadrant, no rebound/guarding Objective Labs Result Diagrams: 11/16/20 05:35 11/14/20 07:50 Labs: Laboratory Results - last 24 hr 11/16/20 05:35 WBC 6.1 RBC 3.50 L Hgb 11.9 L Hct 35.4 L MCV 101.1 H MCH 34.0 MCHC 33.6 RDW 16.2 H Plt Count 179 Neut % (Auto) 68.3 Lymph % (Auto) 16.0 L [place] % (Auto) 14.7 H Eos % (Auto) 0.7 L Baso % (Auto) 0.3 Neut # (Auto) 4200 Lymph # (Auto) 1000 L [place] # (Auto) 900 Eos # (Auto) 0 Baso # (Auto) 0 PFSH Medical History Metastasis to liver with unknown primary site Surgical History History of total mastectomy Status post laparoscopic cholecystectomy Status post myringotomy with insertion of tube Status post tubal ligation Status post vaginal hysterectomy Social History household members: spouse Smoking Status: Former smoker alcohol intake: former Discharge Plan Discharge Plan Patient Disposition: Home Provider Discharge Comment: Ms. Flaherty came in to the hospital with abdominal pain. She was found to have bleeding around the liver, likely from a metastatic cancer. Her blood counts remained stable in the hospital. She had quite a bit of pain from the bleed, so she was given additional pain medications. She is planning to follow closely with her oncologist and has an appointment within one week. Discharge orders & Medications Prescriptions: New hydromorphone [Dilaudid] 4 mg tablet 4 mg PO Q6H PRN (Reason: pain) Qty: 20 RF: 0 Continued carbamazepine 200 MG tablet 200 mg PO BID Qty: 0 RF: 0 Pseudoephedrine Hydrochlorid (#SUDAFED) 120 mg PO 0900 Qty: 0 RF: 0 CA PANTOTHENATE/FOLIC ACID/VIT (MULTIVITAMIN) 1 tab PO Q DAY Qty: 0 RF: 0 docusate sodium 100 MG capsule 300 mg PO BID Qty: 0 RF: 0 melatonin 5 MG tablet 5 mg PO BEDTIME Qty: 0 RF: 0 ondansetron 4 mg tablet,disintegrating 4 mg PO Q6H PRN (Reason: nausea and vomiting) Qty: 20 RF: 0 Probiotic 20 billion cell Capsule 20,000 mmu cells PO DAILY RF: 0 cetirizine [Zyrtec] 10 mg Tablet 10 mg PO DAILY RF: 0 dexamethasone 4 mg tablet 4 mg PO DAILY RF: 0 minocycline 50 mg capsule 50 mg PO DAILY RF: 0 pseudoephedrine HCl 60 mg Tablet 60 mg PO 1800 PRN (Reason: Congestion) RF: 0 lactulose 20 gram/30 mL Solution 30 g PO DAILY RF: 0 oxycodone 5 mg tablet 5 mg PO Q6H PRN (Reason: pain) RF: 0 Discontinued aspirin 81 mg 81 mg PO DAILY RF: 0 Medication counseling provided by Pharmacist: Yes Follow up/Referrals: Tom Tse DO [Primary Care Provider] - Diet/Activity/Treatments Diet: Diet as Tolerated Visit Report/Discharge Packet Instructions: Hydromorphone Discharge Data Primary Care Provider: Tom Tse Attending Provider: Mark Preciado [facility] - [place] The patient has current or prior documentation of left ventricular ejection fraction (LVEF) less than 40%, or moderate or severely depressed left ventricular systolic function.: No
== END 2020-11-16 13:02 | disposition home or self-care (01) ==
LOC: ED 10:53 → AC 11:01
PROVIDERS: Admitting Provider Internal Medicine; Emergency Provider Emergency Medicine; PCP Family Medicine; Referring Provider Emergency Medicine; Visit Provider Internal Medicine
DX: K76.89 Other specified diseases of liver (principal); C78.7 Secondary malignant neoplasm of liver and intrahepatic bile duct; E86.0 Dehydration; D64.9 Anemia, unspecified; C18.9 Malignant neoplasm of colon, unspecified; Z87.891 Personal history of nicotine dependence; Z20.822 Contact with and (suspected) exposure to COVID-19
CPT/HCPCS: 36415; 74177; 80053; 81001; 83690; 85025; 85610; 85730; 86850; 86900; 86901; 87635; 94760; 96361; 96374; 96375; 99284; C9803; G0378; J1170; J2405